=== PATIENT | male | born 1970 | race Caucasian/White ===

== ENCOUNTER 2020-09-11 08:15 | Outpatient (REF) | payer MEDICAID, SELFPAY ==
--- NOTE | ~2020-09-11 | US_ITS ---
EXAMINATION: US VENOUS ULTRASOUND WITH DOPPLER LOWER EXTREMITY, BILATERAL CLINICAL INFORMATION: Right leg pain, seizure disorders COMPARISON: None TECHNIQUE: Ultrasound of the deep veins is performed from the hip to the calf with compression sonography and color and pulse Doppler assessment. Spectral analysis with color-flow imaging is performed. FINDINGS: RIGHT: There is normal venous compression and respiratory variation and augmented flow. The visualized common femoral vein, superficial femoral vein, profunda femoral vein, popliteal vein, and the trifurcation region shows no evidence of deep venous thrombosis. There is no significant popliteal fossa cyst. LEFT: There is normal venous compression and respiratory variation and augmented flow. The visualized common femoral vein, superficial femoral vein, profunda femoral vein, popliteal vein, and the trifurcation region shows no evidence of deep venous thrombosis. There is no significant popliteal fossa cyst. If the patient's symptoms persist, followup ultrasound in 5 days 7 days might be of value to exclude proximal propagation from a non-visualized calf vein. US/US venous duplex LE BI IMPRESSION: No DVT demonstrated in the bilateral lower extremities.
--- NOTE | ~2020-09-11 | US_ITS ---
EXAMINATION: ANKLE-BRACHIAL INDICES. CLINICAL INFORMATION: This is a 50-year-old male with pain in the leg. Soft tissue disorders. Possible peripheral arterial disease. COMPARISON: None. TECHNIQUE: Ankle-brachial indices were obtained. The study was performed pre-exercise. FINDINGS: RIGHT SIDE: The right ankle-brachial index is 1.03 rest. The segmental pressures at the ankle demonstrate no evidence of peripheral arterial disease. The PVR waveforms show no evidence of significant peripheral arterial disease. LEFT SIDE: The left ankle-brachial index is 1.06 at rest. The segmental pressures demonstrate no evidence of significant peripheral arterial disease. The PVR waveforms demonstrate no evidence of significant peripheral arterial disease. US/US LYNDSEY complete IMPRESSION: 1. Normal bilateral resting peripheral arterial testing. INTERPRETATION CRITERIA FOR PERIPHERAL ARTERIAL DISEASE: > 0.97-1.25 = normal - no significant peripheral arterial disease. (0.95 - 0.91 may be abnormal-consider PVRs and Doppler waveforms). 0.75 - 0.96 = MILD peripheral arterial disease. 0.50 -0.74 = MODERATE peripheral arterial disease. < 0.50 = SEVERE peripheral arterial disease. < 0.30 = CRITICAL peripheral arterial disease.
== END 2020-09-11 08:16 | disposition home or self-care (01) ==
LOC: HO.US 08:15
PROVIDERS: PCP Family Medicine; Visit Provider Family Medicine
DX: M79.604 Pain in right leg (principal); M79.89 Other specified soft tissue disorders
CPT/HCPCS: 93923; 93970

== ENCOUNTER 2020-10-14 09:58 | Outpatient (REF) | payer MEDICAID, SELFPAY ==
--- NOTE | ~2020-10-14 | US_ITS ---
EXAMINATION: US COMPLETE ABDOMEN WITH LIVER ELASTOGRAPHY CLINICAL INFORMATION: Hepatitis C, cirrhosis COMPARISON: Abdominal ultrasound 05/05/2017 TECHNIQUE: Real-time imaging of the abdominal viscera. Noninvasive ultrasound liver fibrosis assessment is performed using Etelvina ElastPQ point quantification shear wave elastography (pSWE) with a C5-2 MHz transducer. Multiple elastography samples are obtained. FINDINGS: PANCREAS: The pancreas is normal in size and contour and echogenicity. There is no pancreatic ductal distention or retroperitoneal effusion. Again, there is a peripancreatic node versus papillary process from the liver between the liver and pancreatic head. Echogenicity is similar to the liver. Overall size is 2.6 x 1.0 x 3.0 cm. Prior measurements are 2.1 x 1.0 x 2.1 cm on ultrasound 2017. ABDOMINAL AORTA: The proximal, middle, and distal aortic segments are normal in caliber. INFERIOR VENA CAVA: Visualized portions are normal. LIVER: The liver is smooth in contour. The parenchyma areas homogeneous. There is no focal hepatic parenchymal lesion or intrahepatic biliary ductal dilatation. The right lobe measures 14.5 cm in length. The left lobe measures 15.7 cm in length. Portal flow is towards the liver (hepatopetal). Shear wave liver elastography median stiffness is 2.44 m/s (reference: normal median stiffness is 1.3 m/s or less). IQR/median stiffness to assess sampling precision is 0.41 (reference: good quality data set is IQR/median stiffness of 0.15 or less). GALLBLADDER: Normal. The gallbladder is physiologically distended without evidence of stones, sludge, polyps, wall thickening or pericholecystic fluid. COMMON BILE DUCT: Normal in caliber measuring 0.7 cm in diameter. RIGHT KIDNEY: Normal. No hydronephrosis. No renal calculi or focal parenchymal lesions. The kidney measures 9.8 cm in maximum dimension. LEFT KIDNEY: Normal. No hydronephrosis. No renal calculi or focal parenchymal lesions. The kidney measures 10.8 cm in maximum dimension. SPLEEN: The spleen is enlarged measuring 14.2 cm in length similar to prior exam measurement 13.9 cm on ultrasound 2017. Doppler shows flow in splenic vein towards the liver. FREE FLUID: None. US/US abdomen comp w elastography IMPRESSION: 1. No focal hepatic parenchymal lesion. Liver surface is smooth. Stable splenomegaly 14 cm. No ascites. Portal flow towards the liver. 2. Liver elastography: Although measurements appear suggestive of clinically significant portal hypertension, there is statistical variability of the sampling which decreases accuracy. 3. No cholelithiasis or ductal dilatation. Normal pancreas. 4. Peripancreatic node versus hepatic papillary process measuring 2.6 x 1.0 x 3.0 cm. Prior measurements 2017 similar, 2.1 x 1.0 x 2.1 cm. REFERENCE: Society of Radiologists in Ultrasound Liver Stiffness Thresholds (2020): LIVER STIFFNESS THRESHOLDS: *Liver Stiffness equal or less than 1.3 m/s: High probability of being normal. *Liver Stiffness less than 1.7 m/s: In the absence of other known clinical signs, rules out compensated advanced chronic liver disease. *Liver Stiffness 1.7-2.1 m/s: Suggestive of compensated advanced chronic liver disease but need further test for confirmation. *Liver Stiffness over 2.1 m/s: Rules in compensated advanced chronic liver disease. *Liver Stiffness over 2.4 m/s: Suggestive of clinically significant portal hypertension. QUALITY OF DATA SET: *IQR/Median value equal or less than 0.15 implies a quality data set. *IQR/Median value over 0.15 implies a poor quality data set. SIGNIFICANT CHANGE FROM PRIOR EXAM: Significant change if liver stiffness measurement is 10% or greater from prior exam. OTHER CONSIDERATIONS: The stage of liver fibrosis may be overestimated in the setting of acute hepatitis, liver inflammation, elevated liver function tests, hepatic vascular congestion, obstructive cholestasis, non-fasting state, and infiltrative diseases such as amyloidosis and lymphoma. In some patients with NAFLD, the liver stiffness thresholds for compensated advanced chronic liver disease may be lower. In causes other than viral hepatitis and NAFLD, liver stiffness thresholds are not well established.
== END 2020-10-14 09:59 | disposition home or self-care (01) ==
LOC: HO.US 09:58
PROVIDERS: Visit Provider Family Medicine
DX: B18.2 Chronic viral hepatitis C (principal); K74.69 Other cirrhosis of liver
CPT/HCPCS: 76705; 76981

== ENCOUNTER → 2020-10-20 10:13 | Outpatient (BNVA) | payer MEDICAID, SELFPAY | PROVIDERS: PCP Family Medicine; Visit Provider Internal Medicine Gastroenterology ==

== ENCOUNTER 2020-11-14 11:59 | Outpatient (REF) | payer MEDICAID, SELFPAY ==
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
--- NOTE | ~2020-11-14 | MR_ITS ---
EXAMINATION: MR ABDOMEN WITHOUT AND WITH CONTRAST CLINICAL INFORMATION: Chronic viral hepatitis C COMPARISON: Previous abdominal ultrasounds most recent 10/14/2020 TECHNIQUE: MR abdomen was performed without and with use of 8 mL intravenous Gadavist gadolinium contrast. Postcontrast images are performed in multiphase dynamic sequences. Imaging was performed in 3 planes. FINDINGS: LUNG BASES: The visualized lung bases are unremarkable. LIVER, GALLBLADDER, AND BILIARY TREE: The liver is normal in size and shape. The liver is normal in signal. There is a 5 mm early arterial phase enhancement area seen high in the right lobe of the liver axial image 23 series 100. This is not appreciated on later phases post IV contrast and not appreciated on previous contrast sequences. No other focal liver lesion is seen. There is no intra or extrahepatic biliary duct dilatation. The gallbladder is normal-appearing. There are no gallstones. PANCREAS: Unremarkable. SPLEEN: The spleen is slightly enlarged measuring 13.8 cm in length. ADRENAL GLANDS: Normal. KIDNEYS AND URETERS: The kidneys are normal in size, shape, and enhance symmetrically. No hydronephrosis. No perinephric stranding. GASTROINTESTINAL TRACT: No bowel obstruction. No ascites or fluid collection. ABDOMINAL WALL: No significant hernia is appreciated. LYMPH NODES: There are small periportal lymph nodes. There are small right anterior diaphragmatic or cardiophrenic angle lymph nodes. No enlarged lymph nodes are seen. There is no ascites. VASCULAR: Unremarkable. The portal veins and hepatic veins are patent. The main portal vein is normal in size. No varices are seen. OSSEOUS STRUCTURES: Marrow signal normal. MR/MR abdomen wo/w con IMPRESSION: Small 5 mm nonspecific early enhancing lesion seen high in the right lobe of the liver not appreciated on any other sequences. Imaging follow-up recommended. No evidence of cirrhosis. Stable mild splenomegaly. Small periportal and right anterior diaphragmatic or cardiophrenic angle lymph nodes.
== END 2020-11-14 12:00 | disposition home or self-care (01) ==
LOC: HO.MRI 11:59
PROVIDERS: Visit Provider Internal Medicine Gastroenterology
DX: B18.2 Chronic viral hepatitis C (principal)
CPT/HCPCS: 74183; A9585

== ENCOUNTER 2021-04-04 17:40 | Emergency (ER) | payer OTHER, MEDICAID, SELFPAY ==
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
[2021-04-04 17:52] VITALS: BP 134/79; BP 148/87; PULSE 78; PULSE 89; RESP 18; TEMP 36.6; O2SAT 95; O2SAT 97; BMI 26.6
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
[2021-04-04] MEDS: Acetaminophen 325 MG TABLET 650 MG PO (18:40)
[2021-04-04 19:17] VITALS: BP 124/60; PULSE 77; RESP 16; TEMP 36.5; O2SAT 99
--- NOTE | 2021-04-04 19:56 | PC.NURSE ---
[T SLEEPY AND AROUSIBLE. PT DENIES COMPLAINTS AND RESTING. PT WAKES TO VOICE. RESPIRATIONS EASY AND NOT LABORED. VS OBTAINED. WILL CONTINUE TO MONITOR PT.
--- NOTE | 2021-04-04 21:28 | PC.NURSE ---
pt resting in hallway stretcher. pt wakes to voice. pt's respirations easy, n/l. pt wakes and speaks in fulll sentence and falls back to sleep. will continue to monitor pt. pt awaiting for further orders.
[2021-04-04 21:47] VITALS: BP 130/76; PULSE 78; RESP 16; TEMP 36.3; O2SAT 97
--- NOTE | 2021-04-04 22:47 | PC.NURSE ---
SPLINT APPLIED TO ARM. PT TOLERATED WELL.
--- NOTE | 2021-04-04 22:50 | PC.NURSE ---
applied sling and swath to left arm per providers orders, instructed pt on useage and confirmed comfort level
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
== END 2021-04-04 22:41 | disposition home or self-care (01) ==
PROVIDERS: Emergency Provider Emergency Medicine
DX: S42.211A Unspecified displaced fracture of surgical neck of right humerus, initial encounter for closed fracture (principal); M54.2 Cervicalgia; M25.511 Pain in right shoulder; G44.309 Post-traumatic headache, unspecified, not intractable; V43.52XA Car driver injured in collision with other type car in traffic accident, initial encounter; Y93.9 Activity, unspecified; Y92.410 Unspecified street and highway as the place of occurrence of the external cause; Y99.9 Unspecified external cause status; Z79.899 Other long term (current) drug therapy
CPT/HCPCS: 70450; 71250; 72125; 73030; 74176; 99284

== ENCOUNTER 2021-07-07 07:19 | Outpatient (REF) | payer MEDICAID, SELFPAY | END 2021-07-07 07:20 | disposition home or self-care (01) | LOC: HO.HOSX 07:19 | PROVIDERS: Visit Provider Physician Assistant | DX: Z13.89 Encounter for screening for other disorder (principal) ==

== ENCOUNTER 2021-07-28 07:14 | Outpatient (REF) | payer MEDICAID, SELFPAY ==
--- NOTE | ~2021-07-28 | XR_ITS ---
EXAMINATION: XR SHOULDER, RIGHT CLINICAL INFORMATION: Pain COMPARISON: Previous x-ray March 2021 TECHNIQUE: Three views of the right shoulder. FINDINGS: Bone alignment is normal. No fracture or dislocation is seen. The glenohumeral joint is normal. There is arthritis at the acromioclavicular joint. Soft tissues are unremarkable. XR/XR shoulder RT min 2V IMPRESSION: Arthritis at the acromioclavicular joint.
== END 2021-07-28 07:15 | disposition home or self-care (01) ==
LOC: HO.HOSX 07:14
PROVIDERS: Visit Provider Physician Assistant
DX: M75.101 Unspecified rotator cuff tear or rupture of right shoulder, not specified as traumatic (principal)
CPT/HCPCS: 73030; 99202; J1040

== ENCOUNTER 2021-08-19 07:23 | Outpatient (RCR) | payer OTHER, MEDICAID, SELFPAY | END 2021-09-02 09:11 | disposition home or self-care (01) | LOC: HO.PTWFD 07:23 | PROVIDERS: PCP Family Medicine; Visit Provider Physician Assistant | DX: M75.101 Unspecified rotator cuff tear or rupture of right shoulder, not specified as traumatic (principal) ==

== ENCOUNTER 2021-09-17 08:14 | Outpatient (REF) | payer OTHER, MEDICAID, SELFPAY | END 2021-09-17 08:15 | disposition home or self-care (01) | LOC: HO.HOSX 08:14 | PROVIDERS: Visit Provider Physician Assistant | DX: Z13.89 Encounter for screening for other disorder (principal) ==

== ENCOUNTER → 2021-11-19 13:33 | Outpatient (BNVA) | payer OTHER, MEDICAID, SELFPAY | PROVIDERS: Visit Provider Physician Assistant | DX: M75.101 Unspecified rotator cuff tear or rupture of right shoulder, not specified as traumatic (principal) ==

== ENCOUNTER 2022-03-15 14:08 | Outpatient (REF) | payer OTHER, MEDICAID, SELFPAY ==
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
== END 2022-03-15 14:09 | disposition home or self-care (01) ==
LOC: HO.MRI 14:08
PROVIDERS: Visit Provider Anesthesiology
DX: M50.30 Other cervical disc degeneration, unspecified cervical region (principal); G89.4 Chronic pain syndrome; M54.12 Radiculopathy, cervical region
CPT/HCPCS: 72141

== ENCOUNTER 2022-05-17 13:32 | Emergency (ER) | payer OTHER, MEDICAID, SELFPAY ==
--- NOTE | ~2022-05-17 | CT_ITS ---
EXAMINATION: CT HEAD WITHOUT CONTRAST CLINICAL INFORMATION: Syncope COMPARISON: CT head 04/04/2021 TECHNIQUE: Contiguous axial imaging was performed from the skull base to vertex without intravenous administration of contrast. Coronal and sagittal reformatted images are performed at the CT scanner. [This CT examination was performed using dose optimization techniques as appropriate, variously including the following: *Automated exposure control *Adjustment of mA and/or kV according to patient size (this includes techniques or standardized protocols for targeted exams where dose is matched to indication/reason for exam; i.e. extremities or head) *Use of iterative reconstruction technique] DLP: 616 mGy-cm. FINDINGS: There is no evidence of acute intracranial hemorrhage or territorial infarction. No abnormal mass-effect or midline shift is seen. Jones to white matter differentiation is well preserved. No extra-axial fluid collections are identified. The ventricles are normal in size. There is no abnormal attenuation within the brain parenchyma. There is no osseous abnormality. The mastoid air cells and visualized portions of the paranasal sinuses are well-aerated. CT/CT head/brain wo IV con IMPRESSION: No acute intracranial pathology.
[2022-05-17 13:51] VITALS: BP 135/48; PULSE 64; RESP 12; TEMP 36.8; O2SAT 99
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
[2022-05-17 13:58] VITALS: BP 126/83; BP 135/48; PULSE 64; PULSE 77; RESP 20; TEMP 36.8; O2SAT 96; O2SAT 98; BMI 24.3
--- NOTE | 2022-05-17 14:10 | PC.NURSE ---
pt is a/ox 4 no sob/hugo noted, 02 sat 96-100% on r/a. pt is in trial court custody with handcuffs to preston ankle and r arm handcuffed to bed. pt denies any pain/.disc. pt is very vague/refusing to answer questions. pt aware of plan of care.
[2022-05-17 14:33] LABS: Basophils Percent Auto 0.2 % (0-2)
[2022-05-17 14:35] LABS: Appearance Urine Clear; Color Urine Yellow; Eosinophils Percent Auto 0.1 % (0-4); Glucose Urine UA Negative (Negative); Hematocrit 44.7 % (42.0-52.0); Hemoglobin 13.8 g/dl (14.0-18.0); Imm Gran Abs Auto 0.03 X10*3/uL (0.00-0.03); Imm Gran Pct Auto 0.3 % (0.0-0.4); Leukocyte Esterase Urine Negative (Negative); Lymphocytes Absolute Auto 1.7 X10*3/uL (1.2-4.9); Lymphocytes Percent Auto 16.7 % (20-40); Mean Corpuscular HGB Conc 30.9 g/dl (31.0-36.0); Mean Platelet Volume 10.1 fL (9.4-12.4); Monocytes Absolute Auto 0.6 X10*3/uL (0.1-1.2); Monocytes Percent Auto 5.6 % (2-11); Neutrophils Absolute Auto 7.8 x10*3/uL (2.0-8.3); Neutrophils Percent Auto 77.1 % (45-73); Nitrite Urine Negative (Negative); Platelet Count 282 X10*3/uL (160-400); Red Blood Count 7.26 X10*6/uL (4.60-5.80); Red Cell Distribution Width 17.8 % (11.0-16.0); Specific Gravity - Urine 1.025 (1.005-1.025); UMIC TRIGGER UACC YES; Urine Blood Negative (Negative); Urine Ketones Trace mg/dL (Negative); Urine Protein 100 (2+) mg/dL (Neg-Trace); White Blood Count 10.1 X10*3/uL (4.8-10.8)
[2022-05-17 14:39] LABS: Mean Corpuscular Volume 61.6 fL (80.0-98.0)
[2022-05-17 14:45] LABS: Amphetamine Screen Urine Not Detected (Not Detect); Barbiturates, Urine Not Detected (Not Detect); Benzodiazepines Screen Urine Not Detected (Not Detect); Cannabinoid Screen Urine Not Detected (Not Detect); Cocaine Screen Urine POSITIVE (Not Detect); Fentanyl, urine POSITIVE (Not Detect); Opiate Screen Urine POSITIVE (Not Detect); Phencyclidine Screen Urine Not Detected (Not Detect)
[2022-05-17 14:46] LABS: Anion Gap 17 (12-20); Blood Urea Nitrogen 15 mg/dL (9-16); Calcium 9.9 mg/dL (8.4-10.2); Carbon Dioxide 22 mmol/L (22-29); Chloride 106 mmol/L (96-108); Creatinine Clr Calc Pharmacy 80.8; Estimated Glomerular Filt Rate > 60; Glucose Random 161 mg/dL (60-115); Potassium 3.9 mmol/L (3.3-5.1); Sodium 141 mmol/L (135-145)
[2022-05-17 14:54] LABS: Troponin-I High Sensitivity < 3.5 ng/L (<3.5-35.0)
[2022-05-17 14:57] LABS: Bacteria Urine None Seen (None Seen); Hyaline Casts Urine 0-2 /LPF (0-2); RBC Urine 0-2 /HPF (0-2); Squamous Epithelial Cell Urine 0-2 /HPF (0-2); UACC Culture Trigger YES
--- NOTE | 2022-05-17 15:57 | HO.SUDE ---
Met with pt in ED8 after pt presented to ED from court and passing out. Pt in bed, sleeping but wakes to verbal stimuli. Pt reports using heroin, 2 bundles daily, IV, as well as cocaine, IV. Pt reports last use 2 days ago. Pt falls asleep during conversation but is able to be woken back up by calling his name. 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 At times during conversation with t/w, pt having difficulty speaking. Pt appears to be experiencing opioid withdrawal; diaphoretic, yawning, restless, rhinorrhea. Pt requesting methadone to help alleviate withdrawal symptoms. Discussed with ED provider.
[2022-05-17 16:00] VITALS: BP 146/95; PULSE 72; RESP 16; TEMP 36.8; O2SAT 98
[2022-05-17] MEDS: methADONE HCl 10 MG TABLET 20 MG PO (16:04)
== END 2022-05-17 17:00 ==
PROVIDERS: Emergency Provider Emergency Medicine
DX: F19.10 Other psychoactive substance abuse, uncomplicated (principal); B18.9 Chronic viral hepatitis, unspecified; F11.20 Opioid dependence, uncomplicated
CPT/HCPCS: 36415; 70450; 80048; 80307; 81001; 84484; 85025; 87086; 99284

== ENCOUNTER 2023-05-30 14:40 | Outpatient (REF) | payer MEDICAID, SELFPAY ==
--- NOTE | ~2023-05-30 | XR_ITS ---
EXAMINATION: XR KNEE, LEFT CLINICAL INFORMATION: Chronic pain left knee COMPARISON: Left knee radiograph from 01/13 TECHNIQUE: Four views of the left knee. FINDINGS: No acute visible fracture or dislocation. Multicompartment arthritic changes. Suggestion of chondrocalcinosis along the medial and lateral tibial plateau. Narrowing of the medial femorotibial compartment. Joint space alignment are otherwise maintained. No large knee joint effusion. Soft tissues are XR/XR knee LT 3V IMPRESSION: 1. No acute visible fracture or dislocation. 2. Multicompartment arthritic changes with suggestion of chondrocalcinosis along the medial and lateral tibial plateau.
== END 2023-05-30 14:41 | disposition home or self-care (01) ==
LOC: HO.HHCX 14:40
PROVIDERS: Visit Provider Family Medicine
DX: M25.562 Pain in left knee (principal); G89.29 Other chronic pain
CPT/HCPCS: 73562

== ENCOUNTER 2023-06-21 12:35 | Outpatient (REF) | payer MEDICAID, SELFPAY ==
[2023-06-21 13:13] LABS: MANUAL DIFF FLAG NO
[2023-06-21 13:21] LABS: Basophils Percent Auto 0.5 % (0-2); Eosinophils Absolute Auto 0.1 X10*3/uL (0.0-0.4); Eosinophils Percent Auto 1.6 % (0-4); Hematocrit 41.4 % (42.0-52.0); Hemoglobin 12.6 g/dl (14.0-18.0); Imm Gran Abs Auto 0.02 X10*3/uL (0.00-0.03); Imm Gran Pct Auto 0.2 % (0.0-0.4); Lymphocytes Absolute Auto 2.1 X10*3/uL (1.2-4.9); Lymphocytes Percent Auto 26.1 % (20-40); Mean Corpuscular HGB Conc 30.4 g/dl (31.0-36.0); Mean Corpuscular Hemoglobin 20.2 pg (27.0-33.0); Mean Corpuscular Volume 66.2 fL (80.0-98.0); Mean Platelet Volume 10.3 fL (9.4-12.4); Monocytes Absolute Auto 0.6 X10*3/uL (0.1-1.2); Monocytes Percent Auto 7.2 % (2-11); Neutrophils Absolute Auto 5.3 x10*3/uL (2.0-8.3); Neutrophils Percent Auto 64.4 % (45-73); Platelet Count 167 X10*3/uL (160-400); Red Blood Count 6.25 X10*6/uL (4.60-5.80); Red Cell Distribution Width 17.2 % (11.0-16.0); White Blood Count 8.2 X10*3/uL (4.8-10.8)
[2023-06-21 13:30] LABS: Estimated Average Glucose 100 mg/dL; Hemoglobin A1c % 5.1 % (<6.0)
[2023-06-21 14:17] LABS: Alanine Aminotransferase 12 U/L (0-40); Albumin Level 4.3 g/dL (3.5-5.0); Alkaline Phosphatase 109 U/L (39-117); Anion Gap 12 (12-20); Aspartate Amino Transferase 23 U/L (5-37); Bilirubin Total 0.3 mg/dL (0.0-1.0); Blood Urea Nitrogen 20 mg/dL (9-16); Calcium 9.7 mg/dL (8.4-10.2); Carbon Dioxide 29 mmol/L (22-29); Chloride 105 mmol/L (96-108); Cholesterol 137 mg/dL (<200); Estimated Glomerular Filt Rate > 60; Glucose Random 139 mg/dL (60-115); HDL Cholesterol 31 mg/dL (>40); LDL Cholesterol Calculated 53 mg/dL (<100); Potassium 4.6 mmol/L (3.3-5.1); Sodium 141 mmol/L (135-145); Total Protein 8.2 g/dL (6.5-8.0); Triglycerides 269 mg/dL (<150)
[2023-06-21 14:32] LABS: TSH reflex Free T4 1.44 uIU/mL (0.32-4.0)
[2023-06-21 14:43] LABS: Reflex LDLD? No
[2023-06-21 14:52] LABS: Folate 9.8 ng/mL (> or = 4.0)
[2023-06-22 14:22] LABS: Vitamin B12 225 pg/mL (200-900)
== END 2023-06-21 12:36 | disposition home or self-care (01) ==
LOC: HO.HHCL 12:35
PROVIDERS: Visit Provider Family Medicine
DX: R03.0 Elevated blood-pressure reading, without diagnosis of hypertension (principal); D51.0 Vitamin B12 deficiency anemia due to intrinsic factor deficiency; F31.62 Bipolar disorder, current episode mixed, moderate; Z83.3 Family history of diabetes mellitus
CPT/HCPCS: 36415; 80053; 80061; 82607; 82746; 83036; 84443; 85025

== ENCOUNTER 2023-07-20 01:11 | Emergency (ER) | payer MEDICAID, SELFPAY ==
[2023-07-20 01:19] VITALS: BP 154/95; BP 160/88; PULSE 122; PULSE 138; RESP 16; TEMP 37.2; O2SAT 99; BMI 29.1
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
[2023-07-20 01:36] VITALS: BP 154/95; PULSE 119; RESP 14; TEMP 36.8; O2SAT 97
--- OUTSIDE RECORDS SUMMARY | 2023-07-20 01:37 | XMS_ITS | Continuity of Care Document ---
Author Name Unknown Organization [facility] Address [address] [place] [address]- Care Team Providers Care Chute Boss Name Role Phone Rhona Mendez MD Primary Care Physician Encounter [facility] Date(s): 05/28/22 - 05/28/[address] [address]- Discharge Disposition: A-D/C Home Attending Physician: Mazin Pandya MD Admitting Physician: Mazin Pandya MD Referring Physician: Not on Staff, Referring MD Allergies, Adverse Reactions, Alerts No Known Allergies Medications doxycycline hyclate 100 mg oral capsule 1 capsule = 100 mg, By Mouth, 2 times a day, # 20 capsule, 0 Refills, Acute 05/29/22 14:06:00 EST, 05/28/22 14:06:00 EST, Capsule, Partial fill upon patient request if the prescription is for a schedule II opioid drug. Start Date: 05/28/22 Stop Date: 05/29/22 Status: Ordered ibuprofen 600 mg oral tablet 600 mg, 1, tablet, By Mouth, Every 8 hours, # 30 tablet, Refills 0, Tot. Refills 0, Acute 05/29/22 14:09:00 EST, 05/28/22 14:09:00 EST, Print Requisition, Partial fill upon patient request if the prescription is for a schedule II opioid drug. Start Date: 05/28/22 Stop Date: 05/29/22 Status: Ordered Methadone By Mouth, 0 Refills, Maintenance, 01/18/21 10:37:00 EDT, Partial fill upon patient request if the prescription is for a schedule II opioid drug. Start Date: 01/18/21 Status: Ordered Suboxone 4 mg-1 mg sublingual film 1 film, Sublingual, Daily, dissolve under the tongue, 0 Refills, Maintenance, 05/28/22 11:02:00 EST, Film, Partial fill upon patient request if the prescription is for a schedule II opioid drug. Start Date: 05/28/22 Status: Ordered Results Radiology Reports * Exam Date Time Procedure Performing Provider Status 05/28/22 1:11 PM US Pelvic Doppler Comp Malcom Abad; Auth (Verified) Notes: (US Pelvic Doppler Comp) Reason For Exam: Scrotal Pain;Other: RESULT: US Pelvic Doppler Comp US Scrotum and Contents, US Pelvic Doppler Comp Hx of Present Illness: Pt arrives with c o L testicle pain and swelling that started yesterday around 1300. Denies any urinary symptoms; Reason: Other:; Scrotal Pain; Clinical Question(s): Torsion COMPARISON: None TECHNIQUE: High-resolution sonography with grayscale, color and spectral Doppler analysis. FINDINGS: RIGHT: Right testicle size: 4.5 x 1.9 x 2.8 cm (12.3 cc). Normal right testicle size, contour and echotexture without focal lesions. Normal arterial and venous waveforms. Epididymal cyst measuring 0.7 cm. No significant hydrocele or varicocele. LEFT: Left testicle size: 4.0 x 2.2 x 2.8 cm (12.5 cc). Normal left testicle size, contour and echotexture without focal lesions. Normal arterial and venous waveforms. The epididymal head is edematous and hypervascular by color Doppler, consistent with epididymitis. No significant hydrocele or varicocele. IMPRESSION: Normal ultrasound of the testicles. No evidence of testicular torsion. Findings concerning for left epididymitis. WSN: [id number] Ordering Physician: Chandana Bennett Dictated By: Manny Vogel MD Dictated Date/Time: 05/28/22 12:57 p Reviewed By: Manny Vogel MD Signed By: Manny Vogel MD Signed Date/Time: 05/28/22 12:57 pm Transcribed By: MAGDA Transcribed Date/Time: 05/28/22 12:52 pm * Exam Date Time Procedure Performing Provider Status 05/28/22 1:11 PM US Scrotum and Contents Marquise Abad; Auth (Verified) Notes: (US Scrotum and Contents) Reason For Exam: Scrotal Pain;Other: RESULT: US Scrotum and Contents US Scrotum and Contents, US Pelvic Doppler Comp Hx of Present Illness: Pt arrives with c o L testicle pain and swelling that started yesterday around 1300. Denies any urinary symptoms; Reason: Other:; Scrotal Pain; Clinical Question(s): Torsion COMPARISON: None TECHNIQUE: High-resolution sonography with grayscale, color and spectral Doppler analysis. FINDINGS: RIGHT: Right testicle size: 4.5 x 1.9 x 2.8 cm (12.3 cc). Normal right testicle size, contour and echotexture without focal lesions. Normal arterial and venous waveforms. Epididymal cyst measuring 0.7 cm. No significant hydrocele or varicocele. LEFT: Left testicle size: 4.0 x 2.2 x 2.8 cm (12.5 cc). Normal left testicle size, contour and echotexture without focal lesions. Normal arterial and venous waveforms. The epididymal head is edematous and hypervascular by color Doppler, consistent with epididymitis. No significant hydrocele or varicocele. IMPRESSION: Normal ultrasound of the testicles. No evidence of testicular torsion. Findings concerning for left epididymitis. WSN: [id number] Ordering Physician: Chandana Bennett Dictated By: Manny Vogel MD Dictated Date/Time: 05/28/22 12:57 p Reviewed By: Manny Vogel MD Signed By: Manny Vogel MD Signed Date/Time: 05/28/22 12:57 pm Transcribed By: MAGDA Transcribed Date/Time: 05/28/22 12:52 pm Vital Signs Most recent to oldest [Reference Range]: 1 2 Height 170 cm (05/28/22 11:00 AM) 170 cm (05/28/22 10:54 AM) Weight 76.4 kg (05/28/22 11:00 AM) 76.4 kg (05/28/22 10:54 AM) Oxygen Saturation [94-100 %] 99 % (05/28/22 10:54 AM) Pulse Rate [55-90 bpm] 82 bpm (05/28/22 10:54 AM) Body Mass Index [18.5-24.99 kg/m2] 26.44 kg/m2 *H* (05/28/22 10:54 AM) Blood Pressure [90-138/55-84 mm Hg] 138/ 74mm Hg (05/28/22 10:54 AM) Respiratory Rate [16-30 br/min] 18 br/mi n (05/28/22 10:54 AM) Temperature [96.8-100.4 DegF] 100.0 DegF (05/28/22 10:54 AM) Mode of Delivery (Oxygen) Room air (05/28/22 10:54 AM) Blood pressure sites Arm, left (05/28/22 10:54 AM) Temperature Route Temporal (05/28/22 10:54 AM) Dry Weight 76.4 kg (05/28/22 11:00 AM) 76.4 kg (05/28/22 10:54 AM) Weight Obtained Via Standing scale (05/28/22 10:54 AM) Dry Weight Obtained Via Standing scale (05/28/22 10:54 AM) Social History Social History Type Response Smoking Status Former smoker, quit more than 30 days ago entered on: 01/18/21 Sex Note * Sabrina SANDERS, Chandana Goode: PERFORM Event Display: Patient Education Leaflets Authored Date: Epididymitis ?? [id number] Epididymitis Inflammation of the epididymis can cause pain and swelling in your scrotum. The epididymis is a small tube next to each testicle that stores sperm. Epididymitis is often caused by an infection. In sexually active adults, it's often caused by a sexually transmitted infection (STI) such as chlamydia or gonorrhea. In children and in adults over 40, it can be from bacteria from other parts of the urinary tract (not an STI infection). Symptoms may begin with pain in the lower belly (abdomen) or low back. The pain then spreads down into the scrotum. Often only 1 side is affected. The testicle and scrotum swell and become very painful and red. You may have??a fever and a burning feeling when passing urine. Sometimes you may have discharge from the penis. Treatment is with antibiotics, and anti-inflammatory and pain medicines. The condition should get better over the first few days of treatment. But it will take a few weeks for all the swelling and mild pain to go away. If your healthcare provider thinks that an STI is the??cause, your sexual partners may need to be treated. Home care Here are some home care tips to help you or your child: ??? Support the scrotum. For older childrenand adults: When lying down, place a rolled towel under the scrotum. When walking, use an athletic supporter or 2 pairs of jockey-style underwear. ??? To ease pain, put ice packs on the inflamed area. To make an??ice pack, put ice cubes in a plastic bag that seals at the top. Wrap the bag in a clean, thin??towel. Never put an ice pack directly on the skin. ??? Take pain medicine as directed. You may use??orgk-wiq-ixuyyfk medicines??to control pain, unless another medicine was given. If you havelong-term (chronic) liver or kidney disease, talk with your healthcare provider before taking thesemedicines. Also talk with your provider if you've ever had a stomach ulcer or digestive tract bleeding. ??? Get some rest. Rest in bed for the first few days until the fever, pain, and swelling get better. It may take a few weeks for all of the swelling to go away. ??? Prevent constipation. Constipation??can make you strain. This makes the pain worse. Prevent constipation??by eating natural laxatives. These include prunes, fresh fruits, and whole-grain cereals.??If needed, use a mild dhqy-prn-ovfdyrp laxative??for constipation. Mineral oil can be used to keep the stools soft. ??? Take all medicine as directed. Don't miss any doses. And don't stop taking your medicine early, even if you feelbetter. ??? Teens and adults: Wait to have sex. Don't have sex until you've finished all treatment and all symptoms have cleared. ?? Follow-up care Follow up with your healthcare provider, or as advised, to be sure you're responding correctly to treatment. If a culture was taken, you may call for the result as directed. A culture test can ensurethat you're on the correct antibiotic.? When to get medical advice Call your healthcare provider right away??if any of these occur: ??? Fever of 100.4??F (38??C) or higher, or as advised by your child's or your healthcare provider ??? More pain or swelling of the testicle after starting treatment ??? Pressure or pain that gets worse ??? Unable to pass urine for 8 hours ?? Last Reviewed Date: 2021 ?? [id number] [employer]. All rights reserved. This information is not intended as a substitute for professional medical care. Always follow your healthcare professional's instructions. ?? * RASHAWN Aguirre S: Manny Carnes MD: VERIFY Event Display: Result: Authored Date: US Scrotum and Contents, US Pelvic Doppler Comp Hx of Present Illness: Pt arrives with c o L testicle pain and swelling that started yesterday around 1300. Denies any urinary symptoms; Reason: Other:; Scrotal Pain; Clinical Question(s): Torsion COMPARISON: None TECHNIQUE: High-resolution sonography with grayscale, color and spectral Doppler analysis. FINDINGS: RIGHT: Right testicle size: 4.5 x 1.9 x 2.8 cm (12.3 cc). Normal right testicle size, contour and echotexture without focal lesions. Normal arterial and venous waveforms. Epididymal cyst measuring 0.7 cm. No significant hydrocele or varicocele. LEFT: Left testicle size: 4.0 x 2.2 x 2.8 cm (12.5 cc). Normal left testicle size, contour and echotexture without focal lesions. Normal arterial and venous waveforms. The epididymal head is edematous and hypervascular by color Doppler, consistent with epididymitis. No significant hydrocele or varicocele. IMPRESSION: Normal ultrasound of the testicles. No evidence of testicular torsion. Findings concerning for left epididymitis. WSN: [id number] Ordering Physician: Chandana Bennett Dictated By: Manny Vogel MD Dictated Date/Time: 05/28/22 12:57 p Reviewed By: Manny Vogel MD Signed By: Manny Vogel MD Signed Date/Time: 05/28/22 12:57 pm Transcribed By: MAGDA Transcribed Date/Time: 05/28/22 12:52 pm * RASHAWN Aguirre S: Manny Carnes MD: VERIFY Event Display: Result: Authored Date: [id number] US Scrotum and Contents, US Pelvic Doppler Comp Hx of Present Illness: Pt arrives with c o L testicle pain and swelling that started yesterday around 1300. Denies any urinary symptoms; Reason: Other:; Scrotal Pain; Clinical Question(s): Torsion COMPARISON: None TECHNIQUE: High-resolution sonography with grayscale, color and spectral Doppler analysis. FINDINGS: RIGHT: Right testicle size: 4.5 x 1.9 x 2.8 cm (12.3 cc). Normal right testicle size, contour and echotexture without focal lesions. Normal arterial and venous waveforms. Epididymal cyst measuring 0.7 cm. No significant hydrocele or varicocele. LEFT: Left testicle size: 4.0 x 2.2 x 2.8 cm (12.5 cc). Normal left testicle size, contour and echotexture without focal lesions. Normal arterial and venous waveforms. The epididymal head is edematous and hypervascular by color Doppler, consistent with epididymitis. No significant hydrocele or varicocele. IMPRESSION: Normal ultrasound of the testicles. No evidence of testicular torsion. Findings concerning for left epididymitis. WSN: [id number] Ordering Physician: Chandana Bennett Dictated By: Manny Vogel MD Dictated Date/Time: 05/28/22 12:57 p Reviewed By: Manny Vogel MD Signed By: Manny Vogel MD Signed Date/Time: 05/28/22 12:57 pm Transcribed By: MAGDA Transcribed Date/Time: 05/28/22 12:52 pm Patient Care team information Care Team Personnel Name: Rhona Mendez MD Position: [facility] Outreach Member Role: PCP Address: Address: [address] [place] [address]- Name: Chandana Bennett MD Position: [facility] ED Medicine MD Member Role: ED Attending Physician Address: Address: [address] [place] [address] [place] [address]- Name: Celia Page Position: [facility] ED RN W/OE and Tasks Member Role: Patient Care Provider Care Team Related Persons Name: ANNABELLE SUAERZ
[2023-07-20] MEDS: Naloxone HCl Nasal TAKE HOME 4 MG SPRAY 8 MG NOSTRILALT (01:41)
--- NOTE | 2023-07-20 01:42 | PC.NURSE ---
pt not wanting to wait 2 hours, pt seen by Dean DIRECTOR OF EVENT [employer]ES and is ready for discharge. pt is alert oriented x3 steady gait, denies si or hi, pt has been seen by a provider.
== END 2023-07-20 01:44 | disposition left against medical advice (07) ==
PROVIDERS: Emergency Provider Internal Medicine
DX: T43.651A Poisoning by methamphetamines accidental (unintentional), initial encounter (principal); F11.10 Opioid abuse, uncomplicated; Y92.89 Other specified places as the place of occurrence of the external cause
CPT/HCPCS: 99283

== ENCOUNTER 2023-07-21 12:42 | Outpatient (REF) | payer MEDICAID, SELFPAY | END 2023-07-21 12:43 | disposition home or self-care (01) | LOC: HO.HOSX 12:42 | PROVIDERS: Visit Provider Physician Assistant | DX: Z13.89 Encounter for screening for other disorder (principal) ==

== ENCOUNTER 2023-07-26 01:08 | Emergency (ER) | payer MEDICAID, SELFPAY ==
[2023-07-26 01:14] VITALS: BP 165/105; PULSE 112; RESP 16; TEMP 37.6; O2SAT 94; BMI 28.2
== END 2023-07-26 03:19 | disposition left against medical advice (07) ==
PROVIDERS: Emergency Provider Emergency Medicine
DX: F10.239 Alcohol dependence with withdrawal, unspecified (principal); F43.9 Reaction to severe stress, unspecified
CPT/HCPCS: 99281

== ENCOUNTER 2023-08-07 19:19 | Emergency (ER) | payer MEDICAID, SELFPAY ==
[2023-08-07 19:26] VITALS: PULSE 102; O2SAT 98
[2023-08-07 19:28] VITALS: BP 146/78; PULSE 82; RESP 18; TEMP 36.6; O2SAT 97; BMI 29.0
[2023-08-07 21:37] VITALS: BP 151/100; PULSE 72; RESP 16; TEMP 36.1; O2SAT 97
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
[2023-08-07] MEDS: Bacitracin Oint 0.9 GM PACKET 1 APPL TOPICAL (21:46)
[2023-08-07] MEDS: Amoxicillin/Potassium Clav 875 MG TABLET PO (21:46)
--- NOTE | 2023-08-07 21:52 | PC.NURSE ---
dog bite clean w normal saline, bacitracin applied w non adherent dressing to upper lip. pt to follow up for rabies series if needed
== END 2023-08-07 21:57 | disposition home or self-care (01) ==
PROVIDERS: Emergency Provider Internal Medicine; PCP Family Medicine
DX: S01.511A Laceration without foreign body of lip, initial encounter (principal); W54.0XXA Bitten by dog, initial encounter; Y93.9 Activity, unspecified; Y92.9 Unspecified place or not applicable; Y99.8 Other external cause status; Z79.899 Other long term (current) drug therapy
CPT/HCPCS: 99283; 99284

== ENCOUNTER 2024-04-18 12:59 | Outpatient (REF) | payer MEDICAID, SELFPAY ==
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
== END 2024-04-18 13:00 | disposition home or self-care (01) ==
LOC: HO.NEURO 12:59
PROVIDERS: PCP Family Medicine; Visit Provider Family Medicine
DX: R20.2 Paresthesia of skin (principal)
CPT/HCPCS: 95886; 95909

== ENCOUNTER → 2024-04-18 13:16 | Outpatient (BNV) | payer MEDICAID, SELFPAY | PROVIDERS: PCP Family Medicine; Visit Provider Physical Medicine & Rehabilitation | DX: M79.604 Pain in right leg (principal); M79.605 Pain in left leg; R20.0 Anesthesia of skin; R20.2 Paresthesia of skin | CPT/HCPCS: 95886; 95909 ==

== ENCOUNTER 2024-08-07 11:43 | Outpatient (AMB) | payer MEDICAID, SELFPAY ==
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
[2024-08-07 11:47] VITALS: BMI 29.0
== END 2024-08-07 12:05 | disposition home or self-care (01) ==
PROVIDERS: PCP Family Medicine; Visit Provider Physician Assistant Surgical
DX: I83.11 Varicose veins of right lower extremity with inflammation (principal)
CPT/HCPCS: 99204

== ENCOUNTER → 2024-08-07 11:43 | Outpatient (BNVA) | payer MEDICAID, SELFPAY | PROVIDERS: PCP Family Medicine; Visit Provider Physician Assistant Surgical | DX: I83.11 Varicose veins of right lower extremity with inflammation (principal) | CPT/HCPCS: 99212 ==

== ENCOUNTER 2024-08-29 14:48 | Outpatient (AMB) | payer MEDICAID, SELFPAY ==
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
[2024-08-29 14:53] VITALS: BMI 29.0
--- OUTSIDE RECORDS SUMMARY | 2024-08-29 17:54 | XMS_ITS | Encounter Summary ---
Author Organization [employer] Address [address] [place] [address] Care Team Providers Care Rn Wound Care Name Role Phone Rhona Mendez MD Primary Care Provider [phone] Reason for Visit * Reason Comments RC Recovery Supports Encounter Details Date Type Department Care Team ([facility] st Contact Info) Description 08/16/2024 Patient Outreach [facility] MEDICINE [address] [place] [address] Hanh Page Recovery Supports Social History Tobacco Use Types Packs/Day Years Used Date Smoking Tobacco: Former Cigarettes 0.4 35 1 987 - 2 Passive Smoke Exposure: Past Comments:vaping Alcohol Use Standard Drinks/Week Comments Defer 0 (1 standard drink = 0.6 oz pur e alcohol) Depression Answer Date Recorded Patient Health Questionnaire-9 Score 11 05/15/2024 Patient Health Questionnaire-9 Score 11 05/15/2024 Last PHQ-9: Questionnaire Data Not on file 1 07/15/2023 Housing Stability Answer Date Recorded What is your housing situation today? I do not have housing (Staying with others, in a hotel, in a senior care, living outside on the street, on a beach, in a car, or in a park 03/27/[address] you li ve. Do you have problems with any of the following? None of the above 03/27/2024 Food Insecurity Answer Date Recorded Within the past 12 months, y ou worried that your food would run out before you got money to buy more: Sometimes True 2024 Within the past 12 months,th e food you bought just didn't last and you didn't have enough money to get more: Sometimes True 07/17/2024 Transportation Answer Date Recorded In the past 12 months, has l ack of transportation kept you from medical appts, meetings, work or from getting things needed for daily living? No 02/22/2024 Utilities Answer Date Recorded In the past 12 months, has t he electric, gas, oil or water company threatened to shut off services in your home? No 02/22/2024 Depression Answer Date Recorded Patient Health Questionnaire-2 Score 2 05/15/2024 Internet Access Answer Date Recorded Internet Access Q1 Yes 07/17/2024 Internet Access Q2 I cannot afford it 07/17/2024 Sex and Gender Information Value Date Recorded Sex Assigned at Male 04/26/2022 10:16 AM EDT Legal Sex Male 10:16 AM EDT Gender Identity Male 04/26/2022 10:16 AM EDT Sexual Orientation Straight 04/26/2022 10 :16 AM EDT documented as of this encounter Progress Notes * Hanh Page - 08/16/2024 3:41 PM EST I met with Efren today. Setting: in person at [facility] Recovery Wellness Goals worked on: Personal/Professional Development (Education/Employment) Action taken/next steps: Additional comments: Today, the participant Efren Gonzalez was at the recovery center. Hanh Page documented in this encounter Plan of Treatment Upcoming Encounters Date Type Department Care Team (Late st Contact Info) Description 09/12/2024 9:45 AM EDT Clinical Support [facility] MEDICINE [address] [place] [phone] Bi Tomlinson, RN [address] [place] [address] 09/13/2024 1:30 PM EDT Nurse Only [facility] MEDICINE [address] [place] [phone] 09/18/2024 8:00 AM EDT Office Visit [facility] ADULT DENTAL [address] [place] [phone] Gee Rosado DDS [address] [place] [address] 09/24/2024 1:15 PM EDT Office Visit [facility] MEDICINE [address] [place] [address] Rhona Mendez MD [address] [place] [address] documented as of this encounter Goals Goal Patient Goal Type Associated Problems Recent Progress Patient-Stated? Author Increase coping skills to promote long-term recovery and improve ability to perform daily activities General No Bi Tomlinson, RN Exercise at Least 20 Minutes per Day General No Bi Tomlinson, RN documented as of this encounter Visit Diagnoses Not on filedocumented in this encounter Additional Health Concerns Assessment Noted Time PHQ-9 Depression Total Score: 11 024 12:26 PM EST documented as of this encounter Care Teams Rn Wound Care Relationship Specialty Start Date End Date Rhona Mendez MD [address] [place] [phone] PCP - General Family Medicine 10/18/16 documented as of this encounter
--- OUTSIDE RECORDS SUMMARY | 2024-08-29 17:54 | XMS_ITS | Encounter Summary ---
Author Organization [employer] Address [address] [place] [address] 7[address] [place] [address] Care Team Providers Care Hematology Technician Name Role Phone Rhona Mendez MD Primary Care Provider [phone] Encounter Details Date Type Department Care Team (Late Contact Info) Description 06/01/[address] [facility] MEDICINE [address] [place] [phone] Rhona Mendez MD [address] [place] [address] Vision problem (Primary Dx) Social History Tobacco Use Types Packs/Day Years Used Date Smoking Tobacco: Former Cigarettes 1 35 1 07/17/1986 - 05/17/2022 Depression Answer Date Recorded Patient Health Questionnaire-9 Score 18 05/12/2023 Patient Health Questionnaire-9 Score 18 05/12/2023 Last PHQ-9: Questionnaire Data Not on file 1 07/12/2022 Depression Answer Date Recorded Patient Health Questionnaire-2 Score 4 05/12/2023 Sex and Gender Information Value Date Recorded Sex Assigned at Male 04/26/2022 10:16 AM EDT Legal Sex Male 10:16 AM EDT Gender Identity Male 04/26/2022 10:16 AM EDT Sexual Orientation Straight 04/26/2022 10 :16 AM EDT documented as of this encounter Plan of Treatment Upcoming Encounters Date Type Department Care Team (Late Contact Info) Description 09/12/2024 9:45 AM EDT Clinical Support [facility] MEDICINE [address] [place] [phone] Bi Tomlinson RN [address] [place] [address] 09/13/2024 1:30 PM EDT Nurse Only [facility] [place] [address] 09/18/2024 8:00 AM EDT Office Visit [facility] ADULT DENTAL [address] [facility] [place] [address] Gee Rosado DDS [address] [place], [place] 09/24/2024 1:15 PM EDT Office Visit [facility] [place] [address] Rhona Mendez MD [facility] [place] documented as of this encounter Visit Diagnoses Diagnosis Vision problem- Primary Problems with sight documented in this encounter Additional Health Concerns Assessment Noted Time PHQ-9 Depression Total Score: 18 023 2:19 PM EST documented as of this encounter Care Teams Hematology Technician Relationship Specialty Start Date End Date Rhona Mendez MD [facility] [place] [address] PCP - General Family Medicine 10/18/16 documented as of this encounter
--- OUTSIDE RECORDS SUMMARY | 2024-08-29 17:54 | XMS_ITS | Encounter Summary ---
Author Organization [employer] Address [address] [place] [address] [place], [place] [address] Care Team Providers Care Waterworks Pump Station Operator Name Role Phone Rhona Mendez MD Primary Care Provider [phone] Reason for Visit * Reason Comments Care [facility]ination [facility] telephone call outreach Encounter Details Date Type Department Care Team (Latest Contact Info) Description 08/16/2024 Patient Outreach [facility] MEDICINE [address] [place] [address] Rhona Mendez MD [address] [place] [address] Care Coordination ([facility] telephone call outreach) Social History Tobacco Use Types Packs/Day Years Used Date Smoking Tobacco: Former Cigarettes 0.4 35 1 987 - 2021 Passive Smoke Exposure: Past Comments:vaping Alcohol Use [...] with others, in a hotel, in a group home, living outside on the street, on a [...] as of this encounter Progress Notes * Taylor Turner - 08/16/2024 3:19 PM EST CHW Taylor Turner placed outbound call to patient to follow up on SDOH needs. Patient's name, andaddress confirmed. CHW spoke to patient he still on waiting list for an apartment. Patient state isdoing well. No further questions or concerns. CHW reinforced direct contact information or CM for any additional questions or concerns and extended clinic hours on Mondays and Wednesdays, and Walk-In Urgent Care Located in [facility]. Patient provided with after-hours line for [facility], , which offer night time triage service and option to transfer to animal control officer provider if needed. Patient verbalizes understanding, and able to repeat back to specifications writer. A follow up call willbe placed within 10 days, patient agrees with plan. documented in this encounter Plan of Treatment Upcoming Encounters Date Type Department Care Team (Late st Contact Info) Description 09/12/2024 9:45 AM EDT Clinical Support [facility] MEDICINE [address] [place] [phone] Bi Tomlinson, RN [address] [place] [address] 09/13/2024 1:30 PM EDT Nurse Only [facility] MEDICINE [address] [place] [phone] 09/18/2024 8:00 AM EDT Office Visit [facility] ADULT DENTAL [address] [place] [phone] Gee Rosado DDS [address] [place] [address] 09/24/2024 1:15 PM EDT Office Visit [address] [address] Rhona Mendez MD [address] [place] [address] documented as of this encounter Goals Goal [...] documented as of this encounter Care Teams Waterworks Pump Station Operator Relationship Specialty Start Date End Date Rhona Mendez MD [address] [place] [address] PCP - General Family Medicine 10/18/16 documented as of this encounter
--- OUTSIDE RECORDS SUMMARY | 2024-08-29 17:54 | XMS_ITS | Encounter Summary ---
Author Organization [employer] Address [address] [place] [address] [address] [place] [address] Care Team Providers Care Software Asset Manager Name Role Phone Rhona Mendez MD Primary Care Provider [phone] Encounter Details Date Type Department Care Team (Late st Contact Info) Description 09/29/2022 Orders Only [facility] [address] [place] [address] [phone] Rhona Mendez MD [address] [place] [address] [phone] Opioid type dependence, continuous (CMS/HCC) (Primary Dx) Social History Tobacco Use Types Packs/Day Years Used Date Smoking Tobacco: Former Cigarettes 1 35 1 07/17/1986 - 05/17/2022 Sex and Gender Information Value Date Recorded Sex Assigned at Male 04/26/2022 10:16 AM EDT Legal Sex Male 10:16 AM EDT Gender Identity Male 04/26/2022 10:16 AM EDT Sexual Orientation Straight 04/26/2022 10 :16 AM EDT COVID-19 Exposure Response Date Recorded In the last 10 days, have yo u been in contact with someone who was confirmed or suspected to have Coronavirus/COVID-19? No / Unsure 09/29/2022 1:45 PM EDT documented as of this encounter Plan of Treatment Upcoming Encounters Date Type Department Care Team (Late st Contact Info) Description 09/12/2024 9:45 AM EDT Clinical Support [facility] [address] [place] [phone] Bi Tomlinson RN [address] [place] [address] 09/13/2024 1:30 PM EDT Nurse Only [facility] [address] [place] [address] 09/18/2024 8:00 AM EDT Office Visit [facility] [address] [place] [address] Gee Rosado DDS [address] [place] [address] 09/24/2024 1:15 PM EDT Office Visit [facility] [address] [place] [address] Rhona Mendez MD [address] [place] [address] [phone] documented as of this encounter Visit Diagnoses Diagnosis Opioid type dependence, continuous (CMS/[facility])- Primary Opioid type dependence, continuous documented in this encounter Care Teams Software Asset Manager Relationship Specialty Start Date End Date Rhona Mendez MD [address] [place] [phone] PCP - General Family Medicine 10/18/16 documented as of this encounter
--- OUTSIDE RECORDS SUMMARY | 2024-08-29 17:54 | XMS_ITS | Encounter Summary ---
Author Organization [employer] Address [address] [facility] 7 [place] [address] Care Team Providers Care Management Trainer Name Role Phone Rhona Mendez MD Primary Care Provider [phone] Reason for Visit * Reason Onset Date Comments Med Refill 08/08/2024 Encounter Details Date Type Department Care Team (Late st Contact Info) Description 08/08/2024 Refill [facility] [address] [place] [address] Bi Tomlinson, ADALGISA [address] [place] [address] Uncomplicated opioid dependence (CMS/HCC) Social History Tobacco Use Types Packs/Day Years [...] with others, in a hotel, in a prison, living outside on the street, on a [...] AM EDT documented as of this encounter Miscellaneous Notes * Telephone Encounter - Bi Tomlinson RN - 08/08/2024 11:50 AM EST Increasing to q4 weeks as discussed. documented in this encounter Plan of Treatment Upcoming Encounters Date Type Department Care Team (Late st Contact Info) Description 09/12/2024 9:45 AM EDT Clinical Support [facility] [address] [place] [phone] Bi Tomlinson, ADALGISA [address] [place] [address] 09/13/2024 1:30 PM EDT Nurse Only [facility] [address] [place] [phone] 09/18/2024 8:00 AM EDT Office Visit [facility] [address] [place] [phone] Gee Rosado DDS [address] [place] [address] 09/24/2024 1:15 PM EDT Office Visit [facility] [address] [place] [address] Rhona Mendez MD [address] [place] [address] documented as of this encounter Visit Diagnoses Diagnosis Uncomplicated opioid dependence (CMS/HCC) documented in this encounter Additional Health Concerns Assessment Noted Time PHQ-9 Depression Total Score: 11 024 12:26 PM EST documented as of this encounter Care Teams Management Trainer Relationship Specialty Start Date End Date Rhona Mendez MD [address] [place] [phone] PCP - General Family Medicine 10/18/16 documented as of this encounter
--- OUTSIDE RECORDS SUMMARY | 2024-08-29 17:54 | XMS_ITS | Patient Health Record ---
Author Organization [facility] Address [address] [place], [place] [id number] Care Team Providers Care Account Development Manager Name Role Phone [facility] Primary Care Provider Essence birgitilaBridgett Rodriguez Unavailable [phone] Reason For Referral No Information Plan Of Treatment No Information Insurance Providers Payer Name Payer Address Payer Phone Subscriber Number Group Number Insured Name Patient Relationship to Insured Coverage Start Date Coverage End Date [place] C[place] [address] [place], [place] [id number] Efren Gonzalez Self - patient is the insured 2
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
--- OUTSIDE RECORDS SUMMARY | 2024-08-29 17:54 | XMS_ITS | Encounter Summary ---
Author Organization [employer] Address [address] [place] [address] 7 [place] [address] Care Team Providers Care Trekking Guide Name Role Phone Rhona Mendez MD Primary Care Provider Reason for Visit * Reason Comments OBAT follow up Encounter Details Date Type Department Care Team (Latest Contact Info) Description 08/16/2024 2:00 PM EST Clinical Support [facility] [address] [place] [address] Bi Tomlinson RN [address] [place] [address] Opioid type dependence, continuous (CMS/HCC) (Primary Dx); B12 deficiency Social History Tobacco Use Types Packs/Day Years [...] with others, in a hotel, in a retirement, living outside on the street, on a [...] AM EDT documented as of this encounter Last Filed Vital Signs Vital Sign Reading Time Taken Comments Blood Pressure - - Pulse - - Temperature - - Respiratory Rate - - Oxygen Saturation - - Inhaled Oxygen Concentration - - Weight 89.8 kg (198 lb) 08/16/2024 2:27 PM EST Height - - Body Mass Index 31.01 05/14/2024 12:34 PM EST documented in this encounter Progress Notes * Bi Tomlinson RN - 08/16/2024 2:00 PM EST Efren Bladimir Gonzalez is a 53 y.o. male who presents for OBAT RV. Patient on current Suboxone dose of 18/4.5 mg on a 3 week schedule, increased to 4 weeks today 08/16/24. MD re-intake: 04/13/23. LFTs done: 06/21/23. Ordered 02/22/24. Patient actively enrolled in behavioral health services, therapist: connecting with [facility] for referral. YAAKOV BROOKS reviewed by provider. Last PCP appt: 02/22/24 Smoking: occasional cigarette, not a daily smoker. He quit vaping. 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 He continues to have right leg pain.Normal NCT/EMG. Missed appointment with orthopedist and neurologist. Upcoming appointment with vascular specialist and plastic surgeon. Waiting for an appointment with dentist. He states the best thing that he did for his recovery is to leave [place]. He states he wants to minimize the time he is in [place]. He is taking medications that were prescribed by his psych prescriber. He is concerned that he is having the same symptoms as Alexsander Grey when he . Today 08/16/24 Utox: bup Efren here a day late due to transportation. Reports doing well in recovery. One year anniversary of his mom's was 08/14/24. Continues to be engaged with [facility] therapist. Saw prescriber 08/14/24. Reports continued leg pain. Saw vascular and will call centralized scheduling to set up diagnostics. Reports he has been having difficulty focusing on tasks and stopped working on his book. He is taking meds from his psych prescriber and is concerned Prozac may be causing weight gain. Encouraged him to discuss on follow up. Increasing to 4 weeks today. Plan: Suboxone dosing schedule of 18/4.5 mg daily and management of side effects reviewed. Recovery support, harm reduction (including Narcan), and behavioral health attendance reviewed. Appointment for 4 weeks given. Patient expressed understanding and agreement with continuing plan of care. This information has been disclosed to you from records protected by federal confidentiality rules (42 CFR Part 2). The federal rules prohibit you from making any further disclosure of information inthis record that identifies a patient as having or having had a substance use disorder either directly, by reference to publicly available information, or through verification of such identification by another person unless further disclosure is expressly permitted by the written consent of the individual whose information is being disclosed or as otherwise permitted by (see2.3.1). The federal rules restrict any use of the information to investigate or prosecute with regard to a crime any patient with a substance use disorder, except as provided at 2.12??(5) and 2.65. * Erlinda Ramsey RN - 08/16/2024 2:00 PM EST SUBJECTIVE: Efren Gonzalez is a 54 y.o. year old male who presents for OBAT follow up Preferred language for medical information: Amharic Scrap Kettle Tender needed: Yes Standing Ordered verified: Yes, standing order expiration date: 01/18/2025 Efren Gonzalez denies any difficulties with previous injection that was received. Allergies Allergen Reactions Klonopin [Clonazepam] OBJECTIVE: B-12 injection given in Right Deltoid, medication was tolerated well. ASSESSMENT: Vitamin B12 deficiency PLAN: Efren Gonzalez will return for next injection on 09/13/2024 . [x] Advised to monitor injection site for any increased redness or swelling [x] Next appointment given Efren Gonzalez agrees with plan of care and verbalized understanding of instructions/education. Erlinda Ramsey RN documented in this encounter Miscellaneous Notes * Addendum Note - Erlinda Ramsey RN - 08/16/2024 2:00 PM ESTAddended by: ERLINDA RAMSEY on: 08/16/2024 04:04 PM Modules accepted: Orders documented in this encounter Plan of Treatment Upcoming Encounters Date Type Department Care Team (Late st Contact Info) Description 09/12/2024 9:45 AM EDT Clinical Support [facility] [address] [place] [address] Bi Tomlinson, ADALGISA [address] [place] [address] 09/13/2024 1:30 PM EDT Nurse Only [facility] [address] [place] [address] 09/18/2024 8:00 AM EDT Office Visit [facility] [address] [place] [address] Gee Rosado DDS [address] [place] [address] 09/24/2024 1:15 PM EDT Office Visit [facility] [address] [place] [address] Rhona Mendez MD [address] [place] [address] documented as of this encounter Goals Goal Patient Goal Type Associated Problems Recent Progress Patient-Stated? Author Increase coping skills to promote long-term recovery and improve ability to perform daily activities General No Bi Tomlinson, RN Exercise at Least 20 Minutes per Day General No Bi Tomlinson, RN documented as of this encounter Procedures Procedure Name Priority Date/Time Associated Diagnosis Comments POCT NE-14 URINE DRUG SCREEN Routine 08/16/2024 2:11 PM EST Opioid type dependence, continuous (CMS/HCC) documented in this encounter Results * POCT NE-14 Urine Drug Screen (08/16/2024 2:11 PM EST) THC Negative Cocaine Screen, Urine Negative Opiate [...] CARE TEST ENTER/MAXIMILIANO T ORDERABLES Final Result documented in this encounter Visit Diagnoses Diagnosis Opioid type dependence, continuous (CMS/HCC)- Primary Opioid type dependence, continuous B12 deficiency documented in this encounter Administered Medications Inactive Administered Medications - up to 3 most recent administrations Medication Order MAR Action Action Date Dose Rate Site cyanocobalamin (Vitamin B-12) injection 1,000 mcg 1,000 mcg, Intramuscular, Once, On Lilia 08/16/24 at 1615, For 1 doseIndications:B12 deficiency Given 08/16/2024 4:15 PM EST 1,000 mcg Right Deltoid documented in this encounter Additional Health Concerns Assessment Noted Time PHQ-9 Depression Total Score: 11 024 12:26 PM EST documented as of this encounter Care Teams Trekking Guide Relationship Specialty Start Date End Date Rhona Mendez MD [address] [place] [address] PCP - General Family Medicine 10/18/16 documented as of this encounter
--- OUTSIDE RECORDS SUMMARY | 2024-08-29 17:54 | XMS_ITS | Encounter Summary ---
Author Organization [employer] Address [address] [place] [address] 7t [place] [address] Care Team Providers Care Head Porter Name Role Phone Rhona Mendez MD Primary Care Provider [phone] Reason for Visit * Reason Onset Date Comments running late 06/09/2023 Encounter Details Date Type Department Care Team (Late st Contact Info) Description 06/09/2023 Telephone [facility] [address] [place] [address] Gee Rosado, DDS [address] [place] [address] running late Social History Tobacco Use Types Packs/Day Years [...] encounter Miscellaneous Notes * Telephone Encounter - Altagracia Casiano - 06/09/2023 10:09 AM EST Patient called in stating the are on the busy and scheduled be here in about 5 minutes. Appt scheduled 06/09 prakash 10 for ext. Informed patient after 10 minutes appt may need to be rescheduled. Patientunderstood but is still going to try documented in this encounter Plan of Treatment Upcoming Encounters Date Type Department Care Team (Late st Contact Info) Description 09/12/2024 9:45 AM EDT Clinical Support [facility] [address] [place] [address] Bi Tomlinson, RN [address] [place] [address] 09/13/2024 1:30 PM EDT Nurse Only [facility] [address] [place] [address] 09/18/2024 8:00 AM EDT Office Visit [facility] [address] [place] [address] Gee Rosado DDS [address] [place] [address] 09/24/2024 1:15 PM EDT Office Visit [facility] [address] [place] [address] Rhona Mendez MD [address] [place] [address] documented as of this encounter Visit Diagnoses Not on filedocumented in this encounter Additional Health Concerns Assessment Noted Time PHQ-9 Depression Total Score: 18 05/12/ 023 2:19 PM EST documented as of this encounter Care Teams Head Porter Relationship Specialty Start Date End Date Rhona Mendez MD [address] [place] [address] PCP - General Family Medicine 10/18/16 documented as of this encounter
--- OUTSIDE RECORDS SUMMARY | 2024-08-29 17:54 | XMS_ITS | Clinical Summary ---
Author Organization [facility] Address [address] [place] [address] Care Team Providers Care Geosciences Faculty Member Name Role Phone Rhona Mendez Primary Care Provider [phone] Allergies No known active allergies Medications cloNIDine (CATAPRES) 0.1 mg tablet Take 0.1 mg by mouth in the morning and 0.1 mg before bedtime. Active Social History Tobacco Use Types Packs/Day Years Used Date Smoking Tobacco: Former Cigarettes Smokeless Tobacco: Never Tobacco Cessation:Counseling Given: Not Answered Sex and Gender Information Value Date Recorded Sex Assigned at Not on file Legal Sex Male 3:53 PM EDT Gender Identity Not on file Sexual Orientation Not on file Last Filed Vital Signs Vital Sign Reading Time Taken Comments Blood Pressure 103/64 02/04/2024 3:59 PM EDT Pulse 74 02/04/2024 3:59 PM EDT Temperature 36.3 ??C (97.3 ??F) 02/04/2024 3:59 PM ED T Respiratory Rate 17 02/04/2024 3:59 PM EDT Oxygen Saturation 96% 02/04/2024 3:59 PM EDT Inhaled Oxygen Concentration - - Weight 80.3 kg (177 lb) 02/04/2024 3:59 PM EDT Height 170.2 cm (5' 7 ) 02/04/2024 3:59 PM EDT Body Mass Index 27.72 02/04/2024 3:59 PM EDT Plan of Treatment Health Maintenance Due Date Last Done Comments CT Colonography 1970 Colonoscopy 1970 Colorectal Cancer Screening 1970 FIT-DNA (Cologuard) 1970 FIT 1970 FOBT 1970 Flex Sigmoidoscopy - 5y 1970 HIV Screening 1970 Hepatitis C Screening 1988 Zoster Vaccines (1 of 2) 2020 COVID-19 Vaccine (2 - 2023-2 5 season) 2024 03/31/2022 Influenza Vaccine (#1) 2024 3, 02/25/2011, 03/04/2009 DTaP,Tdap,and Td Vaccines (3 - Td or Tdap) 10/28/2031 10/27/2021, 02/25/2011 Hepatitis A Vaccines Completed 06/11/2010, 03/04/2009 Hepatitis B Vaccines Completed 06/11/2010, 07/15/2009, 03/04/2009 Pneumococcal Vaccine: Pediatrics (0 to 5 Years) and At-Risk Patients (6 to 64 Years) Aged Out 04/13/2023 No longer eligible b ased on patient's age to complete this topic HPV Vaccines Aged Out No longer eligi ble based on patient's age to complete this topic MMR Vaccines Aged Out No longer eligi ble based on patient's age to complete this topic Meningococcal Vaccine Aged Out No beni juan manuel eligible based on patient's age to complete this topic Insurance [facility] Care Teams Geosciences Faculty Member Relationship Specialty Start Date End Date Rhona Mendez [address] [place] [phone] PCP - General Family Medicine 02/04/24
--- OUTSIDE RECORDS SUMMARY | 2024-08-29 17:54 | XMS_ITS | Encounter Summary ---
Author Organization [employer] Address [address] [place] [address] [place], [place] [address] Care Team Providers Care Operating Room Surgical Technician Name Role Phone Rhona Mendez MD Primary Care Provider Reason for Visit * Reason Comments [facility]ination [facility] call outreach Encounter Details Date Type Department Care Team (Latest Contact Info) Description 08/01/2024 Patient Outreach [facility] [address] [place] [address] Rhona Mendez MD [address] [place] [address] Care Coordination (C3 JUANCHO Turner telephone call outreach) Social History Tobacco Use [...] encounter Progress Notes * Taylor Turner - 08/01/2024 12:03 PM EST CHW Taylor Turner placed outbound call to patient for follow up call on SDOH needs. No answer at thistime. LVM introducing herself from [facility] CM Department. Requested call back. CHW reinforced direct contact information or CM for any additional questionsor concerns and extended clinic hours on Mondays and Wednesdays, and Walk-In Urgent Care Located inLobby of [facility]. Patient provided with after-hours line for [facility], , which offer night time triage service and option to transfer to wall insulation sprayer provider if needed. CHW will attempt another followup call within 10 days. documented in this encounter Plan of Treatment Upcoming Encounters Date Type Department Care Team (Late st Contact Info) Description 09/12/2024 9:45 AM EDT Clinical Support [facility] [address] [place] [address] Bi Tomlinson, RN [address] [place] [address] 09/13/2024 1:30 PM EDT Nurse Only [facility] [place] [address] 09/18/2024 8:00 AM EDT Office Visit [facility] ADULT D[facility] [address] [place] [address] Gee Rosado DDS [address] [place] [address] 09/24/2024 1:15 PM EDT Office Visit [facility] [place] [address] Rhona Mendez MD [address] [place] [address] documented as of this encounter Visit Diagnoses Not on filedocumented in this encounter Additional Health Concerns Assessment Noted Time PHQ-9 Depression Total Score: 11 05/15/ 024 12:26 PM EST documented as of this encounter Care Teams Operating Room Surgical Technician Relationship Specialty Start Date End Date Rhona Mendez MD [address] [place] [address] PCP - General Family Medicine 10/18/16 documented as of this encounter
--- OUTSIDE RECORDS SUMMARY | 2024-08-29 17:54 | XMS_ITS | Encounter Summary ---
Author Organization [employer] Address [address] [place] [address] 7t [place] [address] Care Team Providers Care Amusement Machine Mechanic Name Role Phone Rhona Mendez MD Primary Care Provider [phone] Reason for Referral * Cardiac Stress Testing (Routine) - Closed Specialty Diagnoses / Procedures Referred By Contac t Referred To Contact Cardiology Diagnoses Syncope, unspecified syncope type Procedures Holter monitor - 48 hour Rhona Mendez MD [address] [place] [address] Phone: tel: fax: [address] Phone: tel: fax: Referral ID Status Reason Start Date Expiration Date Visits Re quested Visits Authorized [id number] Closed 07/15/2023 07/14/2024 1 1 Encounter Details Date Type Department Care Team (Late st Contact Info) Description 07/15/2023 Orders Only [facility] [address] [place], [place] [phone] Rhona Mendez MD [address] [place], [place] [phone] Syncope, unspecified syncope type (Primary Dx) Social History Tobacco Use Types [...] 09/12/2024 9:45 AM EDT Clinical Support [facility] [address] [place] [address] Bi Tomlinson, RN [address] [place] [address] 09/13/2024 1:30 PM EDT Nurse Only [facility] [address] [place] [address] 09/18/2024 8:00 AM EDT Office Visit [facility] [address] [place] [address] Gee Rosado DDS [address] [place] [address] 09/24/2024 1:15 PM EDT Office Visit [facility] [address] [place] [address] Rhona Mendez MD [address] [place] [address] Scheduled Orders Name Type Priority Associated Diagnoses Orde r Schedule Holter monitor - 48 hour Cardiac Services Routine Syncope, unspecified syncope type Expected: 07/15/2023 (Approximate), Expires: 07/15/2025 documented as of this encounter Visit Diagnoses Diagnosis Syncope, unspecified syncope type- Primary documented in this encounter Additional Health Concerns Assessment Noted Time PHQ-9 Depression Total Score: 18 023 2:19 PM EST documented as of this encounter Care Teams Amusement Machine Mechanic Relationship Specialty Start Date End Date Rhona Mendez MD [address] [place] [address] PCP - General Family Medicine 10/18/16 documented as of this encounter
--- OUTSIDE RECORDS SUMMARY | 2024-08-29 17:54 | XMS_ITS | Encounter Summary ---
Author Organization [employer] Address [address] [facility] 7t [place] [address] Care Team Providers Care Ski Instructor Name Role Phone Rhona Mendez MD Primary Care Provider [phone] Encounter Details Date Type Department Care Team (Latest Contact Info) Description 08/16/2024 Travel Social History Tobacco Use Types Packs/Day Years [...] Description 09/12/2024 9:45 AM EDT Clinical Support [address] [address] Bi Tomlinson RN [address] [place] [address] 09/13/2024 1:30 PM EDT Nurse Only [address] [address] 09/18/2024 8:00 AM EDT Office Visit [facility] [address] [place] [address] Gee Rosado DDS [address] [place] [address] 09/24/2024 1:15 PM EDT Office Visit [address] [address] Rhona Mendez MD [address] [place] [address] documented as of this encounter Goals Goal [...] documented as of this encounter Care Teams Ski Instructor Relationship Specialty Start Date End Date Rhona Mendez MD [address] [place] [address] PCP - General Family Medicine 10/18/16 documented as of this encounter
--- OUTSIDE RECORDS SUMMARY | 2024-08-29 17:54 | XMS_ITS | Encounter Summary ---
Author Organization [employer] Address [address] [place] [address] 7t [place] [address] Care Team Providers Care Straddle Truck Driver Name Role Phone Rhona Mendez MD Primary Care Provider [phone] Encounter Details Date Type Department Care Team (Late st Contact Info) Description 08/19/2022 Orders Only [facility] [address] [place] [phone] Rhona Mendez MD [address] [place], [place] [phone] Chronic liver disease (Primary Dx); Vitamin B12 deficiency anemia due to intrinsic factor deficiency Social History Tobacco Use Types Packs/Day [...] suspected to have Coronavirus/COVID-19? No / Unsure 08/20/2022 12:31 PM EST documented as of this encounter Plan of Treatment Upcoming Encounters Date Type Department Care Team (Late Contact Info) Description 09/12/2024 9:45 AM EDT Clinical Support [facility] [address] [place], [place] [phone] Bi Tomlinson RN [address] [place] [address] 09/13/2024 1:30 PM EDT Nurse Only [facility] [address] [place] [address] 09/18/2024 8:00 AM EDT Office Visit [facility] ADULT DENTAL [address] [place] [address] Gee Rosado DDS [address] [place] [address] 09/24/2024 1:15 PM EDT Office Visit [facility] [address] [place] [address] Rhona Mendez MD [address] [place] [address] documented as of this encounter Visit Diagnoses Diagnosis Chronic liver disease- Primary Unspecified chronic liver disease without mention of alcohol Vitamin B12 deficiency anemia due to intrinsic factor deficiency Pernicious anemia documented in this encounter Care Teams Straddle Truck Driver Relationship Specialty Start Date End Date Rhona Mendez MD [address] [place] [address] PCP - General Family Medicine 10/18/16 documented as of this encounter
== END 2024-08-29 15:31 | disposition home or self-care (01) ==
PROVIDERS: PCP Family Medicine; Visit Provider Orthopaedic Surgery
DX: S83.241A Other tear of medial meniscus, current injury, right knee, initial encounter (principal); M25.562 Pain in left knee
CPT/HCPCS: 99213

== ENCOUNTER → 2024-08-29 14:48 | Outpatient (BNVA) | payer MEDICAID, SELFPAY | PROVIDERS: PCP Family Medicine; Visit Provider Orthopaedic Surgery | DX: M25.562 Pain in left knee (principal); S83.241A Other tear of medial meniscus, current injury, right knee, initial encounter; X58.XXXA Exposure to other specified factors, initial encounter; Y93.9 Activity, unspecified; Y92.9 Unspecified place or not applicable; Y99.9 Unspecified external cause status | CPT/HCPCS: 99212 ==

== ENCOUNTER → 2024-09-26 07:54 | Outpatient (BNV) | payer MEDICAID, SELFPAY | PROVIDERS: PCP Family Medicine; Visit Provider Radiology Diagnostic Radiology | DX: M23.321 Other meniscus derangements, posterior horn of medial meniscus, right knee (principal) | CPT/HCPCS: 73721 ==

== ENCOUNTER 2024-09-26 07:56 | Outpatient (REF) | payer MEDICAID, SELFPAY ==
--- NOTE | ~2024-09-26 | MR_ITS ---
EXAMINATION: MRI RIGHT KNEE WITHOUT CONTRAST HISTORY: S83.241A - Other tear of medial meniscus, current injury, right knee COMPARISON: There are no prior studies for comparison. TECHNIQUE: Coronal T1 and fat-suppressed proton density, sagittal proton density and fat-suppressed proton density, and axial fat suppressed T2 weighted MR images of the right knee were obtained. FINDINGS: Bone marrow: Bone marrow signal intensity is normal. Joint effusion: There is no joint effusion. Crawford's cyst: There is no Crawford's cyst. Articular cartilage: There is mild osteoarthritis of the medial compartment with cartilage loss. There is a cartilage fissure involving the lateral patellar facet. Muscles/soft tissues: The visualized muscles demonstrate normal signal intensity. Anterior cruciate ligament: Intact Posterior cruciate ligament: Intact Medial collateral ligament: Intact Lateral collateral ligament: Intact Medial meniscus: There is a horizontally oriented linear focus of increased T2 signal intensity within the posterior horn of the medial meniscus. This contacts the inferior joint surface, consistent with a tear. Anterior horn is intact. Lateral meniscus: Intact Flexor mechanism: The popliteus, gastrocnemius, and hamstring tendons are intact. Quadriceps tendon: Intact Patellar tendon: Intact Patellar retinacula: Intact MR/MR knee RT wo con IMPRESSION: 1. Mild osteoarthritis of the medial compartment. 2. Tiny cartilage fissure involving the medial patellar facet. 3. Horizontal tear of the posterior horn of the medial meniscus. Electronically signed by: Eduardo Hillman MD 09/26/2024 09:07 AM EDT
--- OUTSIDE RECORDS SUMMARY | 2024-09-26 08:01 | XMS_ITS | Encounter Summary ---
Author Organization [employer] Address [address] [place] [address] 7t [place] [address] Care Team Providers Care Oysterman Name Role Phone Rhona Mendez MD Primary Care Provider [phone] Encounter Details Date Type Department Care Team (Late Contact Info) Description 09/29/2022 Orders Only [facility] [address] [place] [address] Rhona Mendez MD [address] [place] [phone] Opioid type dependence, continuous (CMS/HCC) (Primary Dx) [...] Department Care Team (Late Contact Info) Description 10/10/2024 10:00 AM EDT Clinical Support [facility] [address] [place] [address] Estela Rodriguez RN 10/10/2024 10:20 AM EDT Nurse Only [facility] [address] [place] [address] documented as of this encounter Visit Diagnoses Diagnosis Opioid type dependence, continuous (CMS/HCC)- Primary Opioid type dependence, continuous documented in this encounter Care Teams Oysterman Relationship Specialty Start Date End Date Rhona Mnedez MD [address] [place] [address] PCP - General Family Medicine 10/18/16 documented as of this encounter
--- OUTSIDE RECORDS SUMMARY | 2024-09-26 08:01 | XMS_ITS | Encounter Summary ---
Author Organization [employer] Address [address] [place] [address] 7t [place] [address] Care Team Providers Care Plumber Pipe Fitting Name Role Phone Rhona Mendez MD Primary Care Provider Reason for Visit * Reason Onset Date Comments rs no show appt 09/19/2024 Encounter Details Date Type Department Care Team ([facility] st Contact Info) Description 09/19/2024 Telephone [facility] [address] [place] [address] Gee Rosado DDS [address] [place] [address] rs no show appt Social History Tobacco Use Types Packs/Day Years Used Date Smoking Tobacco: Former Cigarettes 0.4 35 1 7 - 2021 Passive Smoke Exposure: Past Comments:vaping Alcohol Use Standard Drinks/Week Comments Defer 0 (1 standard drink = 0.6 oz pur e alcohol) Depression Answer Date Recorded Patient Health Questionnaire-9 Score 15 09/11/2024 Patient Health Questionnaire-9 Score 15 09/11/2024 Last PHQ-9: Questionnaire Data Not on file 0 09/11/2024 Housing Stability Answer Date Recorded What is your housing situation today? I do not have housing (Staying with others, in a hotel, in a senior living, living outside on the street, on a [...] Date Recorded Patient Health Questionnaire-2 Score 4 09/11/2024 Internet Access Answer Date Recorded Internet Access [...] * Telephone Encounter - Altagracia Casiano - 09/19/2024 12:48 PM EDT Patient called in to rs no show appt on 09/18. Patient has been informed that they will get a call from office to rs after waiting period. documented in this encounter Plan of Treatment Upcoming Encounters Date Type Department Care Team (Late st Contact Info) Description 10/10/2024 10:00 AM EDT Clinical Support [facility] [address] [place] [address] Estela Rodriguez, ADALGISA 10/10/2024 10:20 AM EDT Nurse Only [facility] [address] [place] [address] documented as of this encounter Goals Goal Patient Goal Type Associated Problems Recent Progress Patient-Stated? Author Increase coping skills to promote long-term recovery and improve ability to perform daily activities General On track( 025 2:47 PM EDT) No Bi Tomlinson, RN Exercise at Least 20 Minutes per Day General Not on track( 025 2:48 PM EDT) No Bi Tomlinson RN Note: Efren said the pain in his legs is worsening, which precludes him from exercising. documented as of this encounter Visit Diagnoses Not on filedocumented in this encounter Additional Health Concerns Assessment Noted Time PHQ-9 Depression Total Score: 15 025 3:19 PM EDT documented as of this encounter Care Teams Plumber Pipe Fitting Relationship Specialty Start Date End Date Rhona Mendez MD [address] [place] [address] PCP - General Family Medicine 10/18/16 documented as of this encounter
--- OUTSIDE RECORDS SUMMARY | 2024-09-26 08:01 | XMS_ITS | Clinical Summary ---
Author Organization [facility] Address [address] [place] [address] Care Team Providers Care Customer Relations Representative Name Role Phone Rhona Mendez Primary Care Provider [phone] Allergies No known active allergies Medications cloNIDine [...] (2 - 2023-2 5 season) 2024 03/31/2022 Pneumococcal Vaccine, 50+ Years (2 of 2 - PCV) 04/13/2024 04/13/2023 Influenza Vaccine (Season Ended) 2025 04/13/2023, 02/25/2011, 03/04/2009 DTaP,Tdap,and Td Vaccines (3 - Td or Tdap) 10/28/2031 10/27/2021, 02/25/2011 Hepatitis A Vaccines Completed 06/11/2010, 03/04/2009 Hepatitis B Vaccines Completed 06/11/2010, 07/15/2009, 03/04/2009 HPV Vaccines Aged Out No longer eligi ble based on patient's age to complete this topic MMR Vaccines Aged Out No longer eligi ble based on patient's age to complete this topic Meningococcal Vaccine Aged Out No beni juan manuel eligible based on patient's age to complete this topic Insurance [facility] Care Teams Customer Relations Representative Relationship Specialty Start Date End Date Rhona Mendez [address] [place] [phone] PCP - General Family Medicine 02/04/24
--- OUTSIDE RECORDS SUMMARY | 2024-09-26 08:01 | XMS_ITS | Encounter Summary ---
Author Organization [employer] Address [address] [place] [address] 7[address] [place] [address] Care Team Providers Care Deputy Of Counter Intelligence Name Role Phone Rhona Mendez MD Primary Care Provider [phone] Reason for Visit * Reason Onset Date Comments running late 06/09/2023 Encounter Details Date Type Department Care Team (Late st Contact Info) Description 06/09/2023 Telephone [facility] [address] [place] [address] Gee Rosado, DDS [address] [place] [address] running late Social History Tobacco Use Types [...] Description 10/10/2024 10:00 AM EDT Clinical Support [facility] [address] [place] [phone] Estela Rodriguez RN 10/10/2024 10:20 AM EDT Nurse Only [facility] [address] [place] [phone] documented as of this encounter Visit Diagnoses Not on filedocumented in this encounter Additional Health Concerns Assessment Noted Time PHQ-9 Depression Total Score: 18 023 2:19 PM EST documented as of this encounter Care Teams Deputy Of Counter Intelligence Relationship Specialty Start Date End Date Rhona Mendez MD [address] [place] [address] PCP - General Family Medicine 10/18/16 documented as of this encounter
--- OUTSIDE RECORDS SUMMARY | 2024-09-26 08:01 | XMS_ITS | Patient Health Record ---
Author Organization [facility] Address [address] [place], [place] [id number] Care Team Providers Care Hospice Team Lead Name Role Phone [facility] Primary Care Provider Essence birgitilaBridgett Rodriguez Unavailable [phone] Reason For Referral No Information Plan Of Treatment No Information Insurance Providers Payer Name Payer Address Payer Phone Subscriber Number Group Number Insured Name Patient Relationship to Insured Coverage Start Date Coverage End Date [place] C3 [address] [place], [place] [id number] Efren Gonzalez Self - patient is the insured 2
--- OUTSIDE RECORDS SUMMARY | 2024-09-26 08:01 | XMS_ITS | Encounter Summary ---
Author Organization [employer] Address [address] [place] [address] 7t [place] [address] Care Team Providers Care Dispensing Operator Name Role Phone Rhona Mendez MD Primary Care Provider [phone] Reason for Referral * Cardiac Stress Testing (Routine) - Closed Specialty Diagnoses / Procedures Referred By Contac t Referred To Contact Cardiology Diagnoses Syncope, unspecified syncope type Procedures Holter monitor - 48 hour Rhona Mendez MD [address] [place] [address] Phone: tel: fax: [address] Phone: tel: fax: Referral ID Status Reason Start Date Expiration Date Visits Re quested Visits Authorized [id number] Closed 07/15/2023 07/14/2024 1 1 Encounter Details Date Type Department Care Team (Late st Contact Info) Description 07/15/2023 Orders Only [facility] MEDICINE [address] [place], [place] [phone] Rhona Mendez MD [address] [place], [place] [phone] Syncope, unspecified syncope type (Primary Dx) Social [...] Description 10/10/2024 10:00 AM EDT Clinical Support [facility] [address] [place] [phone] Estela Rodriguez RN 10/10/2024 10:20 AM EDT Nurse Only [address] [address] Scheduled Orders Name Type Priority Associated Diagnoses [...] documented as of this encounter Care Teams Dispensing Operator Relationship Specialty Start Date End Date Rhona Mendez MD [address] [place] [address] PCP - General Family Medicine 10/18/16 documented as of this encounter
--- OUTSIDE RECORDS SUMMARY | 2024-09-26 08:01 | XMS_ITS | Encounter Summary ---
Author Organization [employer] Address [address] [place] [address] 7t [place] [address] Care Team Providers Care Publication Specialist Name Role Phone Rhona Mendez MD Primary Care Provider [phone] Encounter Details Date Type Department Care Team ([facility] Contact Info) Description 08/19/2022 Orders Only [facility] MEDICINE [address] [place] [phone] Rhona Mendez MD [address] [place] [address] [phone] Chronic liver disease (Primary Dx); Vitamin B12 [...] Upcoming Encounters Date Type Department Care Team ([facility] Contact Info) Description 10/10/2024 10:00 AM EDT Clinical Support [facility] MEDICINE [address] [place] [address] [phone] Estela Rodriguez RN 10/10/2024 10:20 AM EDT Nurse Only [facility]INE [address] [place] [address] documented as of this encounter Visit Diagnoses Diagnosis Chronic liver disease- Primary Unspecified chronic liver disease without mention of alcohol Vitamin B12 deficiency anemia due to intrinsic factor deficiency Pernicious anemia documented in this encounter Care Teams Publication Specialist Relationship Specialty Start Date End Date Rhona Mendez MD [address] [place] [address] PCP - General Family Medicine 10/18/16 documented as of this encounter
--- OUTSIDE RECORDS SUMMARY | 2024-09-26 08:01 | XMS_ITS | Encounter Summary ---
Author Organization [employer] Address [address] [place] [address] 7t [place] [address] Care Team Providers Care Branch Services Manager Name Role Phone Rhona Mendez MD Primary Care Provider Encounter Details Date Type Department Care Team ([facility] Contact Info) Description 06/01/2023 Orders Only [facility] MEDICINE [address] [place] [phone] Rhona Mendez MD [address] [place] [phone] Vision problem (Primary Dx) Social History Tobacco [...] Upcoming Encounters Date Type Department Care Team ([facility] Contact Info) Description 10/10/2024 10:00 AM EDT Clinical Support [facility] MED[facility]INE [address] [place] [phone] Estela Rodriguez RN 10/10/2024 10:20 AM EDT Nurse Only [facility] [address] [place] [address] documented as of this encounter Visit Diagnoses Diagnosis Vision problem- Primary Problems with sight documented in this encounter Additional Health Concerns Assessment Noted Time PHQ-9 Depression Total Score: 18 023 2:19 PM EST documented as of this encounter Care Teams Branch Services Manager Relationship Specialty Start Date End Date Rhona Mendez MD [address] [place] [address] PCP - General Family Medicine 10/18/16 documented as of this encounter
--- OUTSIDE RECORDS SUMMARY | 2024-09-26 08:01 | XMS_ITS | Encounter Summary ---
Author Organization [employer] Address [address] [facility] 7 [place] [address] Care Team Providers Care Returns Supervisor Name Role Phone Rhona Mendez MD Primary Care Provider [phone] Reason for Visit * Reason Onset Date Comments Appointment Request 09/24/2024 Encounter Details Date Type Department Care Team ([facility] st Contact Info) Description 09/24/2024 Telephone [facility] [address] [place] [address] Rhona Mendez MD [address] [place] [address] Appointment Request Social History Tobacco Use Types Packs/Day Years [...] with others, in a hotel, in a fci, living outside on the street, on a [...] encounter Miscellaneous Notes * Telephone Encounter - Mackenzie Vanegas - 09/24/2024 2:13 PM EDT Tc from pt requesting new appointment for physical due to having transportation problems wasn't able to make it today. Please return call to [phone] * Telephone Encounter - Lima Noyola - 09/24/2024 1:41 PM EDT Pt no showed to apt on 09/24/2024 letter will be sent out documented in this encounter Plan of Treatment Upcoming Encounters Date Type Department Care Team (Late st Contact Info) Description 10/10/2024 10:00 AM EDT Clinical Support [facility] [address] [place] [phone] Estela Rodriguez, ADALGISA 10/10/2024 10:20 AM EDT Nurse Only [facility] [address] [place] [phone] documented as of this encounter Goals Goal Patient Goal Type Associated Problems Recent Progress Patient-Stated? Author Increase coping skills to promote long-term recovery and improve ability to perform daily activities General On track( 025 2:47 PM EDT) No Bi Tomlinson, RN Exercise at Least 20 Minutes per Day General Not on track( 025 2:48 PM EDT) No Bi Tomlinson, RN Note: Efren said the pain in his legs is worsening, which precludes him from exercising. documented as of this encounter Visit Diagnoses Not on filedocumented in this encounter Additional Health Concerns Assessment Noted Time PHQ-9 Depression Total Score: 15 025 3:19 PM EDT documented as of this encounter Care Teams Returns Supervisor Relationship Specialty Start Date End Date Rhona Mendez MD [address] [place] [address] PCP - General Family Medicine 10/18/16 documented as of this encounter
--- OUTSIDE RECORDS SUMMARY | 2024-09-26 08:01 | XMS_ITS | Encounter Summary ---
Author Organization [employer] Address [address] [facility] 7 [place] [address] Care Team Providers Care Administration Professional Name Role Phone Rhona Mendez MD Primary Care Provider [phone] Reason for Visit * Reason Comments Med Refill Encounter Details Date Type Department Care Team ([facility] st Contact Info) Description 09/21/2024 Refill [facility] MED[facility] [address] [place], [place] [phone] Rhona Mendez MD [address] [place] [address] Seborrheic dermatitis Social History Tobacco Use Types Packs/Day Years [...] with others, in a hotel, in a detention, living outside on the street, on a [...] Description 10/10/2024 10:00 AM EDT Clinical Support [facility] [address] [place] [phone] Estela Rodriguez RN 10/10/2024 10:20 AM EDT Nurse Only [facility] [address] [place] [address] documented as of this encounter Goals Goal Patient Goal Type Associated Problems Recent Progress Patient-Stated? Author Increase coping skills to promote long-term recovery and improve ability to perform daily activities General On track( 2:47 PM EDT) No Bi Tomlinson, RN Exercise at Least 20 Minutes per Day General Not on track( 2:48 PM EDT) No Bi Tomlinson, RN Note: Efren said the pain in his legs is worsening, which precludes him from exercising. documented as of this encounter Visit Diagnoses Diagnosis Seborrheic dermatitis Unspecified seborrheic dermatitis documented in this encounter Additional Health Concerns Assessment Noted Time PHQ-9 Depression Total Score: 15 03/18/2 025 3:19 PM EDT documented as of this encounter Care Teams Administration Professional Relationship Specialty Start Date End Date Rhona Mendez MD [address] [place] [address] PCP - General Family Medicine 10/18/16 documented as of this encounter
--- OUTSIDE RECORDS SUMMARY | 2024-09-26 08:01 | XMS_ITS | Encounter Summary ---
Author Organization [employer] Address [address] [facility] 7 [place] [address] Care Team Providers Care Unit Director Name Role Phone Rhona Mendez MD Primary Care Provider [phone] Reason for Visit * Reason Onset Date Comments Call Back Request 09/19/2024 Encounter Details Date Type Department Care Team ([facility] st Contact Info) Description 09/19/2024 Telephone [facility] MEDICINE [address] [place] [address] Rhona Mendez MD [address] [place] [address] Call Back Request Social History Tobacco Use Types Packs/Day [...] with others, in a hotel, in a assisted, living outside on the street, on a [...] * Telephone Encounter - Mackenzie Vanegas - 09/19/2024 2:47 PM EDT Tc from pt stating received a call from [facility] , no voicemail left law writer advised no documentation butwill placed message in case someone did called him. [phone] documented in this encounter Plan of Treatment Upcoming Encounters Date Type Department Care Team (Late st Contact Info) Description 10/10/2024 10:00 AM EDT Clinical Support [facility] MED[facility]INE [address] [place] [address] Estela Rodriguez, ADALGISA 10/10/2024 10:20 AM EDT Nurse Only [facility] [address] [place] [address] documented as of this encounter Goals Goal Patient Goal Type Associated Problems Recent Progress Patient-Stated? Author Increase coping skills to promote long-term recovery and improve ability to perform daily activities General On track( 025 2:47 PM EDT) No Bi Tomlinson, RN Exercise at Least 20 Minutes per Day General Not on track( 025 2:48 PM EDT) No Bi Tomlinson RN Note: Efrne said the pain in his legs is worsening, which precludes him from exercising. documented as of this encounter Visit Diagnoses Not on filedocumented in this encounter Additional Health Concerns Assessment Noted Time PHQ-9 Depression Total Score: 15 025 3:19 PM EDT documented as of this encounter Care Teams Unit Director Relationship Specialty Start Date End Date Rhona Mendez MD [address] [place] [address] PCP - General Family Medicine 10/18/16 documented as of this encounter
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
== END 2024-09-26 07:57 | disposition home or self-care (01) ==
LOC: HO.MRI 07:56
PROVIDERS: PCP Family Medicine; Visit Provider Orthopaedic Surgery
DX: S83.241A Other tear of medial meniscus, current injury, right knee, initial encounter (principal)
CPT/HCPCS: 73721

== ENCOUNTER 2024-10-03 14:23 | Outpatient (AMB) | payer MEDICAID, SELFPAY ==
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
--- OUTSIDE RECORDS SUMMARY | 2024-10-03 16:39 | XMS_ITS | Encounter Summary ---
Author Organization [employer] Address [address] [place] [address] [address] [place] [address] Care Team Providers Care C.O.D. Biller Name Role Phone Rhona Mendez MD Primary Care Provider [phone] Encounter Details Date Type Department Care Team ([facility] Contact Info) Description 08/19/2022 Orders Only [facility] [address] [place] [phone] Rhona Mendez MD [address] [place] [address] [phone] Chronic liver disease (Primary Dx); Vitamin B12 [...] Upcoming Encounters Date Type Department Care Team ([facility] Contact Info) Description 10/10/2024 10:00 AM EDT Clinical Support [facility] [address] [place] [address] [phone] Estela Rodriguez RN 10/10/2024 10:20 AM EDT Nurse Only [facility] [address] [place] [phone] 11/07/2024 10:00 AM EDT Clinical Support [address] [address] Bi Tomlinson, RN [address] [place] [address] documented as of this encounter Visit Diagnoses Diagnosis Chronic liver disease- Primary Unspecified chronic liver disease without mention of alcohol Vitamin B12 deficiency anemia due to intrinsic factor deficiency Pernicious anemia documented in this encounter Care Teams C.O.D. Biller Relationship Specialty Start Date End Date Rhona Mendez MD [address] [place] [phone] PCP - General Family Medicine 10/18/16 documented as of this encounter
--- OUTSIDE RECORDS SUMMARY | 2024-10-03 16:39 | XMS_ITS | Encounter Summary ---
Author Organization [employer] Address [address] [place] [address] [address] [place] [address] Care Team Providers Care Chief Operator Name Role Phone Rhona Mendez MD Primary Care Provider [phone] Reason for Visit * Reason Onset Date Comments running late 06/09/2023 Encounter Details Date Type Department Care Team (Late st Contact Info) Description 06/09/2023 Telephone [facility] [address] [place] [address] Gee Rosado, DDS [address] [place] [address] running late Social History Tobacco Use Types [...] Description 10/10/2024 10:00 AM EDT Clinical Support [address] [address] Estela Rodriguez, ADALGISA 10/10/2024 10:20 AM EDT Nurse Only [address] [address] 11/07/2024 10:00 AM EDT Clinical Support [address] [address] Bi Tomlinson, RN [address] [place] [phone] documented as of this encounter Visit Diagnoses Not on filedocumented in this encounter Additional Health Concerns Assessment Noted Time PHQ-9 Depression Total Score: 18 023 2:19 PM EST documented as of this encounter Care Teams Chief Operator Relationship Specialty Start Date End Date Rhona Mendez MD [address] [place] [phone] PCP - General Family Medicine 10/18/16 documented as of this encounter
--- OUTSIDE RECORDS SUMMARY | 2024-10-03 16:39 | XMS_ITS | Encounter Summary ---
Author Organization [employer] Address [address] [place] [address] 7t [place] [address] Care Team Providers Care Drum Saw Operator Name Role Phone Rhona Mendez MD Primary Care Provider [phone] Encounter Details Date Type Department Care Team (Late Contact Info) Description 09/29/2022 Orders Only [facility] [address] [place] [address] Rhona Mendez MD [address] [place] [address] [phone] Opioid type dependence, continuous (CMS/HCC) (Primary Dx) [...] Description 10/10/2024 10:00 AM EDT Clinical Support [facility] [address] [place] [address] Estela Rodriguez RN 10/10/2024 10:20 AM EDT Nurse Only [address] [address] 11/07/2024 10:00 AM EDT Clinical Support [address] [address] Bi Tomlinson, RN [address] [place] [address] documented as of this encounter Visit Diagnoses Diagnosis Opioid type dependence, continuous ([facility])- Primary Opioid type dependence, continuous documented in this encounter Care Teams Drum Saw Operator Relationship Specialty Start Date End Date Rhona Mendez MD [address] [place] [phone] PCP - General Family Medicine 10/18/16 documented as of this encounter
--- OUTSIDE RECORDS SUMMARY | 2024-10-03 16:39 | XMS_ITS | Encounter Summary ---
Author Organization [employer] Address [address] [facility] 7 [place] [address] Care Team Providers Care Case Supervisor Name Role Phone Rhona Mendez MD Primary Care Provider [phone] Reason for Visit * Reason Onset Date Comments Med Refill 10/03/2024 Encounter Details Date Type Department Care Team (Late st Contact Info) Description 10/03/2024 Refill [facility] [address] [place] [address] Bi Tomlinson, ADALGISA [address] [place] [address] Uncomplicated opioid dependence (CMS/HCC) Social History Tobacco [...] Description 10/10/2024 10:00 AM EDT Clinical Support [address] [address] Estela Rodriguez RN 10/10/2024 10:20 AM EDT Nurse Only [address] [address] 11/07/2024 10:00 AM EDT Clinical Support [address] [address] Bi Tomlinson, RN [address] [place] [phone] documented as of this encounter Goals Goal [...] Noted Time PHQ-9 Depression Total Score: 15 09/11/ 025 3:19 PM EDT documented as of this encounter Care Teams Case Supervisor Relationship Specialty Start Date End Date Rhona Mendez MD [address] [place] [phone] PCP - General Family Medicine 10/18/16 documented as of this encounter
--- OUTSIDE RECORDS SUMMARY | 2024-10-03 16:39 | XMS_ITS | Encounter Summary ---
Author Organization [facility] [employer] Address [address] [place] [address] 7[address] [place] [address] Care Team Providers Care Elevator Mechanic Apprentice Name Role Phone Rhona Mendez MD Primary Care Provider Reason for Referral * Cardiac Stress Testing (Routine) - Closed Specialty Diagnoses / Procedures Referred By Contac t Referred To Contact Cardiology Diagnoses Syncope, unspecified syncope type Procedures Holter monitor - 48 hour Rhona Mendez MD [address] [place] [address] Phone: tel: fax: [address] Phone: tel: fax: Referral ID Status Reason Start Date Expiration Date Visits Re quested Visits Authorized [id number] Closed 07/15/2023 07/14/2024 1 1 Encounter Details Date Type Department Care Team (Late st Contact Info) Description 07/15/2023 Orders Only [facility] [address] [place], [place] [phone] Rhona Mendez MD [address] [place], [place] [phone] Syncope, unspecified syncope type (Primary Dx) Social [...] Description 10/10/2024 10:00 AM EDT Clinical Support [address] [address] Estela Rodriguez, ADALGISA 10/10/2024 10:20 AM EDT Nurse Only [address] [address] 11/07/2024 10:00 AM EDT Clinical Support [address] [address] Bi Tomlinson, RN [address] [place] [address] Scheduled Orders Name Type Priority Associated Diagnoses [...] documented as of this encounter Care Teams Elevator Mechanic Apprentice Relationship Specialty Start Date End Date Rhona Mendez MD [address] [place] [phone] PCP - General Family Medicine 10/18/16 documented as of this encounter
--- OUTSIDE RECORDS SUMMARY | 2024-10-03 16:39 | XMS_ITS | Clinical Summary ---
Author Organization [facility] Address [address] [place] [address] Care Team Providers Care Calender Supervisor Name Role Phone Rhona Mendez Primary Care Provider [phone] Allergies No known active allergies Medications cloNIDine [...] patient's age to complete this topic Insurance [facility] Care Teams Calender Supervisor Relationship Specialty Start Date End Date Rhona Mendez [address] [place] [phone] PCP - General Family Medicine 02/04/24
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
--- OUTSIDE RECORDS SUMMARY | 2024-10-03 16:39 | XMS_ITS | Encounter Summary ---
Author Organization [employer] Address [address] [place] [address] 7t [place] [address] Care Team Providers Care Paginator Name Role Phone Rhona Mendez MD Primary Care Provider [phone] Encounter Details Date Type Department Care Team ([facility] Contact Info) Description 06/01/2023 Orders Only [facility] MEDICINE [address] [place] [phone] Rhona Mendez MD [address] [place] [phone] Vision problem (Primary Dx) Social History Tobacco [...] Upcoming Encounters Date Type Department Care Team ([facility] Contact Info) Description 10/10/2024 10:00 AM EDT Clinical Support [facility] [address] [place] [phone] Estela Rodriguez RN 10/10/2024 10:20 AM EDT Nurse Only [facility] [address] [place] [phone] 11/07/2024 10:00 AM EDT Clinical Support [address] [address] Bi Tomlinson, RN [address] [place] [address] documented as of this encounter Visit Diagnoses Diagnosis Vision problem- Primary Problems with sight documented in this encounter Additional Health Concerns Assessment Noted Time PHQ-9 Depression Total Score: 18 023 2:19 PM EST documented as of this encounter Care Teams Paginator Relationship Specialty Start Date End Date Rhona Mendez MD [address] [place] [phone] PCP - General Family Medicine 10/18/16 documented as of this encounter
--- OUTSIDE RECORDS SUMMARY | 2024-10-03 16:39 | XMS_ITS | Encounter Summary ---
Author Organization [employer] Address [address] [place] [address] 7[address] [place] [address] Care Team Providers Care Door Fitter Name Role Phone Rhona Mendez MD Primary Care Provider [phone] Reason for Visit * Reason Onset Date Comments rs no show appt 09/19/2024 Encounter Details Date Type Department Care Team ([facility] st Contact Info) Description 09/19/2024 Telephone [facility] ADULT DENTAL [address] [place] [address] Gee Rosado DDS [address] [place] [address] rs no show appt Social History Tobacco [...] with others, in a hotel, in a ch[facility], living outside on the street, on a [...] 10:00 AM EDT Clinical Support [facility] MED[facility]INE [address] [place] [phone] Estela Rodriguez, ADALGISA 10/10/2024 10:20 AM EDT Nurse Only [facility] MED[facility]INE [address] [place] [phone] 11/07/2024 10:00 AM EDT Clinical Support [address] [address] Bi Tomlinson, RN [address] [place] [phone] documented as of this encounter Goals Goal [...] documented as of this encounter Care Teams Door Fitter Relationship Specialty Start Date End Date Rhona Mendez MD [address] [place] [address] PCP - General Family Medicine 10/18/16 documented as of this encounter
--- OUTSIDE RECORDS SUMMARY | 2024-10-03 16:39 | XMS_ITS | Encounter Summary ---
Author Organization [employer] Address [address] [facility] 7 [place] [address] Care Team Providers Care Vendor Management Associate Name Role Phone Rhona Mendez MD Primary Care Provider [phone] Reason for Visit * Reason Onset Date Comments Call Back Request 09/19/2024 Encounter Details Date Type Department Care Team ([facility] st Contact Info) Description 09/19/2024 Telephone [facility] MEDICINE [address] [place] [address] Rhona Mendez MD [address] [place] [address] Call Back Request Social History Tobacco Use [...] stating received a call from [facility] , no voicemail left verse writer advised no documentation butwill placed message in case someone did called him. [phone] documented in this encounter Plan of Treatment Upcoming Encounters Date Type Department Care Team (Late st Contact Info) Description 10/10/2024 10:00 AM EDT Clinical Support [facility] [address] [place] [address] Estela Rodriguez, RN 10/10/2024 10:20 AM EDT Nurse Only [facility] [address] [place] [address] 11/07/2024 10:00 AM EDT Clinical Support [address] [address] Bi Tomlinson, RN [address] [place] [address] documented as of this encounter Goals Goal [...] documented as of this encounter Care Teams Vendor Management Associate Relationship Specialty Start Date End Date Rhona Mendez MD [address] [place] [address] PCP - General Family Medicine 10/18/16 documented as of this encounter
== END 2024-10-03 14:50 | disposition home or self-care (01) ==
LOC: HO.HOS 14:23
PROVIDERS: PCP Family Medicine; Visit Provider Orthopaedic Surgery
DX: R22.41 Localized swelling, mass and lump, right lower limb (principal)
CPT/HCPCS: 99213

== ENCOUNTER → 2024-10-03 14:23 | Outpatient (BNVA) | payer MEDICAID, SELFPAY | PROVIDERS: PCP Family Medicine; Visit Provider Orthopaedic Surgery | DX: R22.41 Localized swelling, mass and lump, right lower limb (principal) | CPT/HCPCS: 99212 ==

== ENCOUNTER 2024-10-10 16:06 | Outpatient (REF) | payer MEDICAID, SELFPAY ==
--- OUTSIDE RECORDS SUMMARY | 2024-10-10 18:12 | XMS_ITS | Encounter Summary ---
Author Organization [employer] Address [address] [place] [address] 7t [place] [address] Care Team Providers Care Cement Finishing Supervisor Name Role Phone Rhona Mendez MD Primary Care Provider [phone] Reason for Visit * Reason Onset Date Comments running late 06/09/2023 Encounter Details Date Type Department Care Team (Late st Contact Info) Description 06/09/2023 Telephone [facility] [address] [place] [address] Gee Rosado, DDS [address] [place] [address] running late Social History Tobacco Use Types [...] Care Team (Late st Contact Info) Description 10/23/2024 1:00 PM EDT Nurse Only [address] [address] 11/07/2024 10:00 AM EDT Clinical Support [address] [address] Bi Tomlinson, ADALGISA [address] [place] [address] documented as of this encounter Visit Diagnoses Not on filedocumented in this encounter Additional Health Concerns Assessment Noted Time PHQ-9 Depression Total Score: 18 05/12/2 023 2:19 PM EST documented as of this encounter Care Teams Cement Finishing Supervisor Relationship Specialty Start Date End Date Rhona Mendez MD [address] [place] [address] PCP - General Family Medicine 10/18/16 documented as of this encounter
--- OUTSIDE RECORDS SUMMARY | 2024-10-10 18:12 | XMS_ITS | Patient Health Record ---
Author Organization [facility] Address [address] [place], [place] [id number] Care Team Providers Care Car Servicer Name Role Phone [facility] Primary Care Provider Essence birgitilaBridgett Rodriguez Unavailable [phone] Reason For Referral No Information Plan Of Treatment No Information Insurance Providers Payer Name Payer Address Payer Phone Subscriber Number Group Number Insured Name Patient Relationship to Insured Coverage Start Date Coverage End Date [place] Medicaid C3 [address] [place], [place] [id number] Efren Gonzalez Self - patient is the insured 2
--- OUTSIDE RECORDS SUMMARY | 2024-10-10 18:12 | XMS_ITS | Encounter Summary ---
Author Organization [employer] Address [address] [facility] 7 [place] [address] Care Team Providers Care Senior Product Development Scientist Name Role Phone Rhona Mendez MD Primary Care Provider Reason for Visit * Reason Onset Date Comments Call Back Request 09/19/2024 Encounter Details Date Type Department Care Team ([facility] st Contact Info) Description 09/19/2024 Telephone [facility] MED[facility]INE [address] [place] [address] Rhona Mendez MD [address] [place] [address] Call Back Request Social History Tobacco Use [...] stating received a call from [facility] , no voicemail left principal technical writer advised no documentation butwill placed message in case someone did called him. [phone] documented in this encounter Plan of Treatment Upcoming Encounters Date Type Department Care Team (Late st Contact Info) Description 10/23/2024 1:00 PM EDT Nurse Only [facility] MED[facility]INE [address] [place] [address] 11/07/2024 10:00 AM EDT Clinical Support [facility] [address] [place] [address] Bi Tomlinson, RN [address] [place] [address] documented as of this encounter Goals Goal [...] documented as of this encounter Care Teams Senior Product Development Scientist Relationship Specialty Start Date End Date Rhona Mendez MD [address] [place] [address] PCP - General Family Medicine 10/18/16 documented as of this encounter
--- OUTSIDE RECORDS SUMMARY | 2024-10-10 18:12 | XMS_ITS | Encounter Summary ---
Author Organization [employer] Address [address] [place] [address] 7t [place] [address] Care Team Providers Care Certified Orthotist Name Role Phone Rhona Mendez MD Primary Care Provider [phone] Encounter Details Date Type Department Care Team ([facility] Contact Info) Description 06/01/2023 Orders Only [facility] MEDICINE [address] [place] [address] Rhona Mendez MD [address] [place] [address] Vision problem (Primary Dx) Social History Tobacco [...] Upcoming Encounters Date Type Department Care Team ([facility] Contact Info) Description 10/23/2024 1:00 PM EDT Nurse Only [facility] MED[facility]INE [address] [place] [address] 11/07/2024 10:00 AM EDT Clinical Support [facility] MED[facility]INE [address] [place] [address] Bi Tomlinson, ADALGISA [address] [place] [address] documented as of this encounter Visit Diagnoses Diagnosis Vision problem- Primary Problems with sight documented in this encounter Additional Health Concerns Assessment Noted Time PHQ-9 Depression Total Score: 18 023 2:19 PM EST documented as of this encounter Care Teams Certified Orthotist Relationship Specialty Start Date End Date Rhona Mendez MD [address] [place] [address] PCP - General Family Medicine 10/18/16 documented as of this encounter
--- OUTSIDE RECORDS SUMMARY | 2024-10-10 18:12 | XMS_ITS | Encounter Summary ---
Author Organization [employer] Address [address] [facility] 7t [place] [address] Care Team Providers Care Truck Dispatcher Name Role Phone Rhona Mendez MD Primary Care Provider [phone] Encounter Details Date Type Department Care Team ([facility] Contact Info) Description 08/19/2022 Orders Only [facility] MEDICINE [address] [place] [address] Rhona Mendez MD [address] [place] [address] Chronic liver disease (Primary Dx); Vitamin B12 [...] Upcoming Encounters Date Type Department Care Team ([facility] Contact Info) Description 10/23/2024 1:00 PM EDT Nurse Only [facility] MED[facility]INE [address] [place] [phone] 11/07/2024 10:00 AM EDT Clinical Support [facility] [address] [place] [address] Bi Tomlinson, ADALGISA [address] [place] [address] documented as of this encounter Visit Diagnoses Diagnosis Chronic liver disease- Primary Unspecified chronic liver disease without mention of alcohol Vitamin B12 deficiency anemia due to intrinsic factor deficiency Pernicious anemia documented in this encounter Care Teams Truck Dispatcher Relationship Specialty Start Date End Date Rhona Mendez MD [address] [place] [address] PCP - General Family Medicine 10/18/16 documented as of this encounter
--- OUTSIDE RECORDS SUMMARY | 2024-10-10 18:12 | XMS_ITS | Encounter Summary ---
Author Organization [employer] Address [address] [place] [address] 7t [place] [address] Care Team Providers Care Re Etcher Name Role Phone Rhona Mendez MD Primary Care Provider [phone] Reason for Referral * Cardiac Stress Testing (Routine) - Closed Specialty Diagnoses / Procedures Referred By Contac t Referred To Contact Cardiology Diagnoses Syncope, unspecified syncope type Procedures Holter monitor - 48 hour Rhona Mendez MD [address] [place] [address] Phone: tel: fax: [address] Phone: tel: fax: Referral ID Status Reason Start Date Expiration Date Visits Re quested Visits Authorized [id number] Closed 07/15/2023 07/14/2024 1 1 Encounter Details Date Type Department Care Team (Late st Contact Info) Description 07/15/2023 Orders Only [facility] MED[facility]INE [address] [place], [place] [phone] Rhona Mendez MD [address] [place], [place] [phone] Syncope, unspecified syncope type (Primary Dx) Social [...] Description 10/23/2024 1:00 PM EDT Nurse Only [facility] MEDICINE [address] [place] [address] 11/07/2024 10:00 AM EDT Clinical Support [facility]INE [address] [place] [address] Bi Tomlinson, RN [address] [place] [address] Scheduled Orders Name Type Priority Associated Diagnoses [...] documented as of this encounter Care Teams Re Etcher Relationship Specialty Start Date End Date Rhona Mendez MD [address] [place] [address] PCP - General Family Medicine 10/18/16 documented as of this encounter
--- OUTSIDE RECORDS SUMMARY | 2024-10-10 18:12 | XMS_ITS | Clinical Summary ---
Author Organization [facility] Address [address] [place] [address] Care Team Providers Care Auditor/Quality Name Role Phone Rhona Mendez Primary Care Provider [phone] Allergies No known active allergies Medications cloNIDine [...] patient's age to complete this topic Insurance [facility] Care Teams Auditor/Quality Relationship Specialty Start Date End Date Rhona Mendez [address] [place] [address] PCP - General Family Medicine 02/04/24
--- OUTSIDE RECORDS SUMMARY | 2024-10-10 18:12 | XMS_ITS | Encounter Summary ---
Author Organization [employer] Address [address] [place] [address] 7t [place] [address] Care Team Providers Care Magnetic Tape Winder Name Role Phone Rhona Mendez MD Primary Care Provider [phone] Reason for Visit * Reason Onset Date Comments rs no show appt 09/19/2024 Encounter Details Date Type Department Care Team ([facility] st Contact Info) Description 09/19/2024 Telephone [facility]ULT D[facility] [address] [place] [address] Gee Rosado DDS [address] [place] [address] rs no show appt Social History Tobacco [...] with others, in a hotel, in a jail, living outside on the street, on a [...] Description 10/23/2024 1:00 PM EDT Nurse Only [facility] [address] [place] [address] 11/07/2024 10:00 AM EDT Clinical Support [facility] [address] [place] [address] Bi Tomlinson, ADALGISA [address] [place] [address] documented as of this encounter Goals Goal [...] documented as of this encounter Care Teams Magnetic Tape Winder Relationship Specialty Start Date End Date Rhona Mendez MD [address] [place] [address] PCP - General Family Medicine 10/18/16 documented as of this encounter
--- OUTSIDE RECORDS SUMMARY | 2024-10-10 18:12 | XMS_ITS | Encounter Summary ---
Author Organization [employer] Address [address] [place] [address] 7t [place] [address] Care Team Providers Care Process Artist Name Role Phone Rhona Mendez MD Primary Care Provider [phone] Encounter Details Date Type Department Care Team (Late Contact Info) Description 09/29/2022 Orders Only [facility] MEDICINE [address] [place] [address] Rhona Mendez MD [address] [place] [address] Opioid type dependence, continuous (CMS/HCC) (Primary Dx) [...] Department Care Team (Late Contact Info) Description 10/23/2024 1:00 PM EDT Nurse Only [facility] MEDICINE [address] [place] [address] 11/07/2024 10:00 AM EDT Clinical Support [facility] MEDICINE [address] [place] [address] Bi Tomlinson, ADALGISA [address] [place] [address] documented as of this encounter Visit Diagnoses Diagnosis Opioid type dependence, continuous (CMS/HCC)- Primary Opioid type dependence, continuous documented in this encounter Care Teams Process Artist Relationship Specialty Start Date End Date Rhona Mendez MD [address] [place] [address] PCP - General Family Medicine 10/18/16 documented as of this encounter
--- OUTSIDE RECORDS SUMMARY | 2024-10-10 18:13 | XMS_ITS | Encounter Summary ---
Author Organization [employer] Address [address] [facility] 7t [place] [address] Care Team Providers Care Agent Broker Name Role Phone Rhona Mendez MD Primary Care Provider [phone] Encounter Details Date Type Department Care Team (Latest Contact Info) Description 10/10/2024 Travel Social History Tobacco Use Types Packs/Day [...] Description 10/23/2024 1:00 PM EDT Nurse Only [facility] MEDICINE [address] [place] [address] 11/07/2024 10:00 AM EDT Clinical Support [address] [address] Bi Tomlinson, ADALGISA [address] [place] [address] documented as of this encounter Goals Goal Patient Goal Type Associated Problems Recent Progress Patient-Stated? Author Increase coping skills to promote long-term recovery and improve ability to perform daily activities General On track( 2:47 PM EDT) No Bi Tomlinson, ADALGISA Exercise at Least 20 Minutes per Day General Not on track( 2:48 PM EDT) No Bi Tomlinson, ADALGISA Note: Efren said the pain in his legs is worsening, which precludes him from exercising. documented as of this encounter Visit Diagnoses Not on filedocumented in this encounter Additional Health Concerns Assessment Noted Time PHQ-9 Depression Total Score: 15 025 3:19 PM EDT documented as of this encounter Care Teams Agent Broker Relationship Specialty Start Date End Date Rhona Mendez MD [address] [place] [address] PCP - General Family Medicine 10/18/16 documented as of this encounter
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
[2024-10-16 11:50] LABS: Fentanyl, Ur 11.4
[2024-10-16 11:51] LABS: Norfentanyl, Ur 39.7
== END 2024-10-10 16:07 | disposition home or self-care (01) ==
LOC: HO.HHCLNP 16:06
PROVIDERS: Visit Provider Emergency Medicine
DX: F11.20 Opioid dependence, uncomplicated (principal)
CPT/HCPCS: 80354

== ENCOUNTER 2024-10-24 17:01 | Outpatient (REF) | payer MEDICAID, SELFPAY ==
--- OUTSIDE RECORDS SUMMARY | 2024-10-24 17:03 | XMS_ITS | Encounter Summary ---
Author Organization [employer] Address [address] [facility] 7t [place] [address] Care Team Providers Care Information Systems Technician Name Role Phone Rhona Mendez MD Primary Care Provider Encounter Details Date Type Department Care Team (Latest Contact Info) Description 10/24/2024 Travel Social History Tobacco Use Types Packs/Day [...] with others, in a hotel, in a fdc, living outside on the street, on a [...] Care Team (Late st Contact Info) Description 11/07/2024 10:00 AM EDT Clinical Support [address] [address] Bi Tomlinson RN [address] [place] [address] 11/23/2024 2:00 PM EDT Clinical Support [address] [address] documented as of this encounter Goals Goal Patient Goal Type Associated Problems Recent Progress Patient-Stated? Author Increase coping skills to promote long-term recovery and improve ability to perform daily activities General On track( 3:32 PM EDT) No Bi Tomlinson, ADALGISA Exercise [...] documented as of this encounter Care Teams Information Systems Technician Relationship Specialty Start Date End Date Rhona Mendez MD [address] [place] [address] PCP - General Family Medicine 10/18/16 documented as of this encounter
--- OUTSIDE RECORDS SUMMARY | 2024-10-24 17:03 | XMS_ITS | Encounter Summary ---
Author Organization [employer] Address [address] [facility] 7t [place] [address] Care Team Providers Care Baby Doctor Name Role Phone Rhona Mendez MD Primary Care Provider [phone] Reason for Visit * Reason Comments OBAT F/U Encounter Details Date Type Department Care Team (Latest Contact Info) Description 10/24/2024 3:00 PM EDT Clinical Support [facility] MEDICINE [address] [place] [address] Bi Tomlinson, ADALGISA [address] [place] [address] Uncomplicated opioid dependence (CMS/HCC) (Primary Dx) Social History Tobacco Use [...] as of this encounter Progress Notes * Bi Tomlinson RN - 10/24/2024 3:00 PM EDT Efren Gonzalez is a 53 [...] daily smoker. He quit vaping. Last visit 10/10/24 Pos: Bup,Fen Pt strongly denies using Fentanyl or any substances other than occasional Marijuana. UTOX shows fen, and confirmed with test strip. RN to send urine out for confirmation. Pt denies any substance use or cravings. Has Narcan. Once urine GCMS is in will have RN discuss with pt. Today 10/24/24 Utox pos: bup, FEN (faint) (sent out) Efren seen today as walk-in for opioid use disorder. Pt came in to know results of confirmatory fentanyl from 2 weeks ago, which was positive. Pt does not recall using anything other than prescribed medication. Offered pt option of repeating urine toxicology today which again showed positive bup, faint fen. Will send out again. Provided pt fentanyl test strips and has Narcan. Will follow up in 2 weeks as scheduled. Plan: Suboxone dosing schedule of 18/4.5 mg [...] Description 11/07/2024 10:00 AM EDT Clinical Support [facility] MEDICINE [address] [place] [address] Bi Tomlinson, ADALGISA [address] [place] [address] 11/23/2024 2:00 PM EDT Clinical Support [address] [address] Scheduled Orders Name Type Priority Associated Diagnoses Orde r Schedule Drug Monitoring, Fentanyl, with Confirmation, Urine Lab Routine Uncomplicated opioid dependence ([facility]) Ordered: 10/24/2024 documented as of this encounter Goals Goal Patient Goal Type Associated Problems Recent Progress Patient-Stated? Author Increase coping skills to promote long-term recovery and improve ability to perform daily activities General On track( 3:32 PM EDT) No Bi Tomlinson, RN Exercise at Least 20 Minutes per Day General Not on track( 025 2:48 PM EDT) No Bi Tomlinson, RN Note: Efren said the pain in his legs is worsening, which precludes him from exercising. documented as of this encounter Procedures Procedure Name Priority Date/Time Associated Diagnosis Comments POCT NE-14 URINE DRUG SCREEN Routine 10/24/2024 3:21 PM EDT Uncomplicated opioid dependence (CMS/HCC) documented in this encounter Results * POCT NE-14 Urine Drug Screen (10/24/2024 3:21 PM EDT) THC Negative Cocaine Screen, Urine Negative Opiate Screen, Urine Negative Methamphetamine Screen Urine Negative Amphetamine Screen, Urine Negative Benzodiazepines Screen, Urine Negative Barbiturate Screen, Urine Negative Methadone Screen, Urine Negative Buprenophine Screen, Urine Positive TCA, Urine Negative MDMA Urine Negative ng/mL Oxycodone Screen, Urine Negative Phencyclidine (PCP), Urine Negative Fentanyl, Urine Positive Urine Urine specimen obtained by clean catch procedure / Unknown 10/24/2024 3:21 PM EDT Rhona Mendez MD POINT OF CARE TEST ENTER/EDIT OR DERABLES Final Result documented in this encounter Visit Diagnoses Diagnosis Uncomplicated opioid dependence (CMS/HCC)- Primary documented in this encounter Additional Health Concerns Assessment Noted Time PHQ-9 Depression Total Score: 15 025 3:19 PM EDT documented as of this encounter Care Teams Baby Doctor Relationship Specialty Start Date End Date Rhona Mendez MD [address] [place] [address] PCP - General Family Medicine 10/18/16 documented as of this encounter
--- OUTSIDE RECORDS SUMMARY | 2024-10-24 17:03 | XMS_ITS | Encounter Summary ---
Author Organization [employer] Address [address] [place] [address] Care Team Providers Care Boatbuilder Apprentice Wood Name Role Phone Rhona Mendez MD Primary Care Provider [phone] Encounter Details Date Type Department Care Team (Late st Contact Info) Description 10/24/2024 2:15 PM EDT Nurse Only [facility] MEDICINE [address] [place], [place] [phone] Bina Prasad LPN B12 deficiency (Primary Dx) Social History Tobacco Use Types [...] with others, in a hotel, in a intermediate, living outside on the street, on a [...] as of this encounter Progress Notes * Bina Prasad LPN - 10/24/2024 2:15 PM EDT SUBJECTIVE: Efren Gonzalez is a 54 y.o. year old male who presents for No chief complaint on file. Preferred language for medical information: Yoruba Block Trimmer needed: No Standing Ordered verified: Yes, standing order expiration date: 12/06/2024 Efren Gonzalez denies any difficulties with previous injection that was received. Allergies Allergen Reactions Klonopin [Clonazepam] OBJECTIVE: B-12 injection given in Right Deltoid, medication was tolerated well. ASSESSMENT: Vitamin B12 deficiency PLAN: Efren Gonzalez will return for next injection on 11/23/2024 . [x] Advised to monitor injection site for any increased redness or swelling [x] Next appointment given Efren Gonzalez agrees with plan of care and verbalized understanding of instructions/education. Bina Prasad LPN documented in this encounter Plan of Treatment Upcoming Encounters Date Type Department Care Team (Late st Contact Info) Description 11/07/2024 10:00 AM EDT Clinical Support [facility] MEDICINE [address] [place] [address] Bi Tomlinson, RN [address] [place] [address] 11/23/2024 2:00 PM EDT Clinical Support [facility] [place] [address] documented as of this encounter Goals Goal [...] as of this encounter Visit Diagnoses Diagnosis B12 deficiency- Primary documented in this encounter Administered Medications Active Administered Medications - up to 3 most recent administrations Medication Order MAR Action Action Date Dose Rate Site cyanocobalamin (Vitamin B-12) injection 1,000 mcg 1,000 mcg, Intramuscular, Every 30 days, First dose on Lilia 09/13/24 at 1530Indications:B12 deficiency Given 10/24/2024 9:00 AM EDT 1,000 mcg Right Deltoid Given 09/13/2024 3:30 PM EDT 1,000 mcg Ri ght Deltoid documented in this encounter Additional Health Concerns Assessment Noted Time PHQ-9 Depression Total Score: 15 3:19 PM EDT documented as of this encounter Care Teams Boatbuilder Apprentice Wood Relationship Specialty Start Date End Date Rhona Mendez MD [facility] [address] PCP - General Family Medicine 10/18/16 documented as of this encounter
--- OUTSIDE RECORDS SUMMARY | 2024-10-24 17:04 | XMS_ITS | Encounter Summary ---
Author Organization [employer] Address [address] [place] [address] 7t [place] [address] Care Team Providers Care Sonar Subsystem Equipment Operator Name Role Phone Rhona Mendez MD Primary Care Provider [phone] Reason for Visit * Reason Onset Date Comments running late 06/09/2023 Encounter Details Date Type Department Care Team (Late st Contact Info) Description 06/09/2023 Telephone [facility] ADULT DENTAL [address] [place] [address] Gee Rosado, DDS [address] [place] [address] running late Social History Tobacco Use Types [...] Description 11/07/2024 10:00 AM EDT Clinical Support [address] [address] Bi Tomlinson, RN [address] [place] [address] 11/23/2024 2:00 PM EDT Clinical Support [address] [address] documented as of this encounter Visit Diagnoses Not on filedocumented in this encounter Additional Health Concerns Assessment Noted Time PHQ-9 Depression Total Score: 18 11/2 023 2:19 PM EST documented as of this encounter Care Teams Sonar Subsystem Equipment Operator Relationship Specialty Start Date End Date Rhona Mendez MD [address] [place] [address] PCP - General Family Medicine 10/18/16 documented as of this encounter
--- OUTSIDE RECORDS SUMMARY | 2024-10-24 17:04 | XMS_ITS | Encounter Summary ---
Author Organization [employer] Address [address] [place] [address] 7t [place] [address] Care Team Providers Care Hot Knife Foxing Cutter Name Role Phone Rhona Mendez MD Primary Care Provider [phone] Encounter Details Date Type Department Care Team (Late st Contact Info) Description 09/29/2022 Orders Only [facility] MEDICINE [address] [place] [phone] Rhona Mendez MD [address] [place] [phone] Opioid type dependence, continuous (CMS/HCC) (Primary Dx) [...] Description 11/07/2024 10:00 AM EDT Clinical Support [facility] MEDICINE [address] [place] [address] Bi Tomlinson RN [address] [place] [address] 11/23/2024 2:00 PM EDT Clinical Support [facility] MEDICINE [address] [place] [address] documented as of this encounter Visit Diagnoses Diagnosis Opioid type dependence, continuous (CMS/HCC)- Primary Opioid type dependence, continuous documented in this encounter Care Teams Hot Knife Foxing Cutter Relationship Specialty Start Date End Date Rhona Mendez MD [address] [place] [address] PCP - General Family Medicine 10/18/16 documented as of this encounter
--- OUTSIDE RECORDS SUMMARY | 2024-10-24 17:04 | XMS_ITS | Encounter Summary ---
Author Organization [employer] Address [address] [place] [address] 7t [place] [address] Care Team Providers Care Washhouse Hand Name Role Phone Rhona Mendez MD Primary Care Provider [phone] Encounter Details Date Type Department Care Team (Late st Contact Info) Description 08/19/2022 Orders Only [facility] MEDICINE [address] [place] [phone] Rhona Mendez MD [address] [place], [place] [phone] Chronic liver disease (Primary Dx); Vitamin B12 [...] Department Care Team (Late Contact Info) Description 11/07/2024 10:00 AM EDT Clinical Support [facility] MEDICINE 230 [place], [place] [phone] Bi Tomlinson RN [address] [place] [address] 11/23/2024 2:00 PM EDT Clinical Support [facility] MEDICINE [address] [place] [address] documented as of this encounter Visit Diagnoses Diagnosis Chronic liver disease- Primary Unspecified chronic liver disease without mention of alcohol Vitamin B12 deficiency 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
--- OUTSIDE RECORDS SUMMARY | 2024-10-24 17:04 | XMS_ITS | Encounter Summary ---
Author Organization [employer] Address [address] [place] [address] 7t [place] [address] Care Team Providers Care Sew On Operator Name Role Phone Rhona Mendez MD Primary Care Provider [phone] Reason for Visit * Reason Onset Date Comments rs no show appt 09/19/2024 Encounter Details Date Type Department Care Team ([facility] st Contact Info) Description 09/19/[address] [facility] ADULT DENTAL [address] [place] [address] Gee Rosado DDS [address] [place] [address] rs no show appt Social History Tobacco [...] EDT Clinical Support [facility] MEDICINE [address] [place] [address] Bi Tomlinson, ADALGISA [address] [place] [address] 11/23/2024 2:00 PM EDT Clinical Support [facility] MEDICINE [address] [place] [place] [address] documented as of this encounter Goals Goal Patient Goal Type Associated Problems Recent Progress Patient-Stated? Author Increase coping skills to promote long-term recovery and improve ability to perform daily activities General On track( 025 3:32 PM EDT) No Bi Tomlinson, RN [...] documented as of this encounter Care Teams Sew On Operator Relationship Specialty Start Date End Date Rhona Mendez MD [address] [place] [address] PCP - General Family Medicine 10/18/16 documented as of this encounter
--- OUTSIDE RECORDS SUMMARY | 2024-10-24 17:04 | XMS_ITS | Encounter Summary ---
Author Organization [employer] Address [address] [place] [address] 7t [place] [address] Care Team Providers Care Registration Coordinator Name Role Phone Rhona Mendez MD Primary Care Provider [phone] Reason for Referral * Cardiac Stress Testing (Routine) - Closed Specialty Diagnoses / Procedures Referred By Contac t Referred To Contact Cardiology Diagnoses Syncope, unspecified syncope type Procedures Holter monitor - 48 hour Rhona Mendez MD [address] [place] [address] Phone: tel: fax: [address] Phone: tel: fax: Referral ID Status Reason Start Date Expiration Date Visits Re quested Visits Authorized [id number] Closed 07/15/2023 07/14/2024 1 1 Encounter Details Date Type Department Care Team (Late st Contact Info) Description 07/15/2023 Orders Only [facility] MEDICINE [address] [place], [place] [phone] Rhona Mendez MD [address] [place], [place] [phone] Syncope, unspecified syncope type (Primary Dx) Social [...] Description 11/07/2024 10:00 AM EDT Clinical Support [address] [address] Bi Tomlinson, RN [address] [place] [address] 11/23/2024 2:00 PM EDT Clinical Support [address] [address] Scheduled Orders Name Type Priority Associated Diagnoses [...] documented as of this encounter Care Teams Registration Coordinator Relationship Specialty Start Date End Date Rhona Mendez MD [address] [place] [address] PCP - General Family Medicine 10/18/16 documented as of this encounter
--- OUTSIDE RECORDS SUMMARY | 2024-10-24 17:04 | XMS_ITS | Encounter Summary ---
Author Organization [employer] Address [address] [facility] 7 [place] [address] Care Team Providers Care Productivity Engineer Name Role Phone Rhona Mendez MD Primary Care Provider Reason for Visit * Reason Onset Date Comments Call Back Request 09/19/2024 Encounter Details Date Type Department Care Team ([facility] st Contact Info) Description 09/19/2024 Telephone [facility] MEDICINE [address] [place] [address] Rhona Mendez MD 230 [place] [address] Call Back Request Social History Tobacco Use [...] with others, in a hotel, in a fpc, living outside on the street, on a [...] from pt stating received a call from [facility] , no voicemail left real estate underwriter advised no documentation butwill placed message in case someone did called him. [phone] documented in this encounter Plan of Treatment Upcoming Encounters Date Type Department Care Team (Late st Contact Info) Description 11/07/2024 10:00 AM EDT Clinical Support [facility] MEDICINE [address] [place] [address] Bi Tomlinson, ADALGISA [address] [place] [address] 11/23/2024 2:00 PM EDT Clinical Support [facility] MEDICINE [address] [place] [phone] documented as of this encounter Goals Goal [...] documented as of this encounter Care Teams Productivity Engineer Relationship Specialty Start Date End Date Rhona Mendez MD [address] [place] [address] PCP - General Family Medicine 10/18/16 documented as of this encounter
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
--- OUTSIDE RECORDS SUMMARY | 2024-10-24 17:04 | XMS_ITS | Clinical Summary ---
Author Organization [facility] Address [address] [place] [address] Care Team Providers Care Hand Rug Braider Name Role Phone Rhona Mendez Primary Care Provider [phone] Allergies No known active allergies Medications cloNIDine [...] patient's age to complete this topic Insurance [facility] Care Teams Hand Rug Braider Relationship Specialty Start Date End Date Rhona Mendez [address] [place] [phone] PCP - General Family Medicine 02/04/24
--- OUTSIDE RECORDS SUMMARY | 2024-10-24 17:04 | XMS_ITS | Encounter Summary ---
Author Organization [employer] Address [address] [place] [address] [address] [place] [address] Care Team Providers Care Oil Treater Name Role Phone Rhona Mendez MD Primary Care Provider [phone] Encounter Details Date Type Department Care Team (Late Contact Info) Description 06/01/2023 Orders Only [facility] MEDICINE [address] [place] [phone] Rhona Mendez MD [address] [place] [address] Vision problem (Primary Dx) Social History Tobacco [...] Description 11/07/2024 10:00 AM EDT Clinical Support [facility] MEDICINE [address] [place] [phone] Bi Tomlinson RN [address] [place] [address] 11/23/2024 2:00 PM EDT Clinical Support [facility] MEDICINE [address] [place] [address] documented as of this encounter Visit Diagnoses Diagnosis Vision problem- Primary Problems with sight documented in this encounter Additional Health Concerns Assessment Noted Time PHQ-9 Depression Total Score: 18 023 2:19 PM EST documented as of this encounter Care Teams Oil Treater Relationship Specialty Start Date End Date Rhona Mendez MD [address] [place] [address] PCP - General Family Medicine 10/18/16 documented as of this encounter
[2024-10-30 12:25] LABS: Fentanyl, Ur 2.4; Norfentanyl, Ur 6.9
== END 2024-10-24 17:02 | disposition home or self-care (01) ==
LOC: HO.LNP 17:01
PROVIDERS: Visit Provider Family Medicine
DX: F11.20 Opioid dependence, uncomplicated (principal)
CPT/HCPCS: 80354